=== PATIENT | female | born 1930 | race Caucasian/White ===

== ENCOUNTER 2018-04-08 15:02 | Inpatient (IN) ==
[2018-04-09] MEDS ORDERED: Melatonin 3 MG TABLET PO PRN (16:39)
[2018-04-10 04:49] LABS: Basophils % 0.5 %; Eosinophils # 0.1 K/mcL (0.0-0.6); Eosinophils % 1.9 %; Hematocrit 30.4 % (35.3-44.9); Hemoglobin 10.4 g/dL (11.5-15.4); Immature Granulocytes % 0.5 % (0-4); Lymphocytes # 1.7 K/mcL (0.6-4.6); Lymphocytes % 29.3 %; Mean Corpuscular HGB Conc 34.2 g/dL (31.6-35.5); Mean Corpuscular Hemoglobin 30.9 pg (28.0-33.3); Mean Corpuscular Volume 90.2 fL (83.0-100.0); Mean Platelet Volume 10.8 fL (9.4-12.4); Monocytes # 0.5 K/mcL (0.0-1.3); Monocytes % 8.4 %; Neutrophils # 3.5 K/mcL (1.6-8.9); Platelet Count 178 K/mcL (140-400); Red Blood Count 3.37 M/mcL (3.82-4.97); Segmented Neutrophils % 59.4 %
[2018-04-10 04:55] LABS: INR 1.1; Prothrombin Time 12.2 Seconds (9.4-12.1)
[2018-04-10 04:58] LABS: Activated Partial Thrombo Time 30.3 Seconds (26.0-36.0)
[2018-04-10 05:07] LABS: BUN/Creatinine Ratio 8 (6-26); Blood Urea Nitrogen 6 mg/dL (8-23); Calcium 9.3 mg/dL (8.6-10.3); Carbon Dioxide 30 mEq/L (23-29); Chloride 103 mEq/L (98-107); Glucose 99 mg/dL (70-105); Osmolality,Calculated 282 (280-300); Potassium 3.3 mEq/L (3.5-5.1); Sodium 137 mEq/L (136-145); eGFR For Non-African Americans > 60 (> 60)
--- NOTE | 2018-04-10 13:23 | Internal Med History&Physical ---
Date of Encounter: 04/11/18 Time of Encounter: 13:30 Assessment and Plan (1) Hypomagnesemia Current visit: Yes Status: Acute Pt may have malabsorption from taking maciel along with poor dietary intake over last few months. poor short term memory may be forgetting to eat - observed here in hospital to be eating well from tray Will add daily oral magnesium. advised pt not to use the maciel expand diet may have failure to thrive nutrional consult placed will check vitamin levels B12 TSH (2) Hypokalemia Current visit: Yes Status: Acute Pt has low K Had low K recently also will supplement K today will not add daily K yet but will check daily this week and observe trending to see if needed may have element of renal K wasting if K still remains low - then would need daily K other plans same as for low magnesium (3) Falls Current visit: Yes Status: Acute Pt is weak and deconditioned she needs rehab therapies ordered She may have increased weakness due to failure to thrive symptoms and electrolyte abnormalities orders corrective placed will also check cbc as mild anemia HB = 10.4 Qualifiers: Encounter type: subsequent encounter Qualified Code(s): W19.XXXD - Unspecified fall, subsequent encounter Internal Medicine - H&P: HPI Chief complaint: Deconditioning/Falls Admitted From: Intrahospital Transfer History of present illness: Ms. Hernandez is a 87 year old female who had been living alone, and sustained a fall down stairs at home. She was admit to outside hospital and then transfer here for rehab. Says she Takes several different herbal vitamins at home, and lots of Betonite Maciel. Says she takes maciel by the spoonful. She does not take medications. She has been found recently to have low magnesium and low K. 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 She lives alone in a large house and bedroom on second floor. She has had short term memory difficulties over months. She also over last 6 months has had about 30 lb wt loss. She says 'its ok I had a large belly anyway". Her daughters says she forgets to eat. They say she used to be very active and lately just spends days on the couch. They say she complained of feeling tired out. She has previously enjoyed good health. She denies chest pain or headache or abd pain. She was previously ambulatory but now weak and deconditioned. Past Med Surg Social Fam HX - Past Medical History Medical history: no medical history Psychiatric history: depression - Past Surgical History Surgical History: cholecystectomy Additional surgical history: colon surgery per rectum - Social History Smoking Status: Never smoker Smokeless Tobacco Status: No Alcohol use: none Drug use: none - Family History Daughter Adopted: Start: [place] Age: 67 Living Status: Still Living Hx Family Cardiac Disorders: No Hx Family Respiratory Disorders: No Hx Family Cancer: No Hx Family GI Disorders: No Hx Family Genitourinary Disorders: No Hx Family Endocrine Disorder: No Hx Family Musculoskeletal Disorders: No Hx Family Neuromuscular Disorders: No Hx Family Neurologic Disorders: No Hx Family HEENT Disorders: No Hx Family Autoimmune Disorders: No Hx Family Reproductive Disorders: No Hx Family Psychosocial Disorders: No Hx Family Medical Disorders: No Internal Medicine - H&P: Meds Allergy/AdvReac Type Severity Reaction Status Date / Time No Known Allergies Allergy Verified 04/09/18 16:09 All Systems PM: A 10-system review of systems was performed and is negative for pertinent findings except as documented above in the HPI. - Constitutional Vitals: Temp Pulse Resp BP Pulse Ox 97.7 F 72 16 128/72 92 04/10/18 07:47 04/10/18 07:47 04/10/18 07:47 04/10/18 07:47 04/10/18 07:47 General appearance: Present: cooperative, A&O X 1, underweight - Head Additional comments: small excoriation - Eye Eye exam: Present: EOMI, PERRL - Neck Additional comments: no goiter or mass no bruit - Respiratory Additional comments: clear to ausculation - Cardiovascular Additional comments: regular no M good heart tones - GI/Abdominal GI/Abdominal exam: Present: hyperactive bowel sounds, normal bowel sounds (no mass palp nontender ) - Extremities Exam Additional comments: pulses stong symetric no edema fair LE musculature - Neurological Exam Additional comments: no gross deficits except short term memory Internal Med - H&P Results - Labs CBC & Chem 7: 04/10/18 04:28 04/10/18 04:28 Labs: Short CBC 04/10/18 Range/Units 04:28 WBC 5.9 (4.3-11.1) K/mcL Hgb 10.4 L (11.5-15.4) g/dL Hct 30.4 L (35.3-44.9) % Plt Count 178 (140-400) K/mcL Neutrophils # 3.5 (1.6-8.9) K/mcL BMP 04/10/18 04:28 Sodium 137 Potassium 3.3 L Chloride 103 Carbon Dioxide 30 H BUN 6 L Creatinine 0.76 Glucose 99 Calcium 9.3
[2018-04-10] MEDS: Multivit/Ca/Min/Fe/FA 1 TAB TABLET PO SCH (14:36)
[2018-04-10] MEDS: Magnesium Oxide 400 MG TABLET PO SCH ×2 (14:36→19:39)
[2018-04-11] MEDS: Multivit/Ca/Min/Fe/FA 1 TAB TABLET PO SCH (08:26)
[2018-04-11] MEDS: Magnesium Oxide 400 MG TABLET PO SCH ×2 (08:26→19:56)
[2018-04-11 11:34] LABS: BUN/Creatinine Ratio 9 (6-26); Blood Urea Nitrogen 8 mg/dL (8-23); Calcium 10.3 mg/dL (8.6-10.3); Carbon Dioxide 30 mEq/L (23-29); Chloride 106 mEq/L (98-107); Glucose 108 mg/dL (70-105); Magnesium 1.8 mg/dL (1.6-2.6); Osmolality,Calculated 289 (280-300); Potassium 4.4 mEq/L (3.5-5.1); Sodium 140 mEq/L (136-145); eGFR For Non-African Americans > 60 (> 60)
[2018-04-11 14:05] LABS: % Iron Saturation 10 % (15-50); Iron 27 mcg/dL (50-170); Transferrin 193 mg/dL (203-362)
--- NOTE | 2018-04-11 14:16 | Internal Med Progress Note ---
Addendum entered and electronically signed by Harish Starr MD 04/12/18 12:22: I have personally performed a face to face evaluation on this patient. I have r eviewed and agree with the care plan. History an d Exam by me shows: The patient was evaluated by me yesterday but the note was not completeDiscussed care with other providers and/or nursing. This documentation is being completed today for that reason. Patient is without complaint and remains comfortably confused. Discussed with therapy staff and feel that she has diminished memory and insight and therefore will need home discharge with 24-hour supervision or ECF. Patient has no complaint of chest discomfort, dyspnea, orthopnea, palpitations, nausea or vomiting, constipation or diarrhea, other changes in bowel habits, difficulty with urination, rash or itching, or other new complaints, except as mentioned above. Review of systems is otherwise negative. Examination: (Except as mentioned above): General: In no apparent distress. Alert and oriented 3. Nondiaphoretic. Head: Atraumatic and normocephalic. Respiratory: No use of accessory muscles. Lungs are clear throughout. Normal airflow. Cardiovascular: Regular rate and rhythm without murmur appreciated. Abdomen: Bowel sounds are normal. No hepatosplenomegaly mass or tenderness appreciated. Extremities: No cyanosis clubbing or edema. Skin: Warm and non-diaphoretic with no new lesions noted. . Original Note: Date of Encounter: 04/11/18 Time of Encounter: 14:13 - Assessment and plan (1) Hypomagnesemia Current Visit: Yes Status: Acute Assessment and plan: Magnesium 1.8. Will reorder tomorrow. (2) Hypokalemia Current Visit: Yes Status: Acute Assessment and plan: Potassium is returning to normal 4.4. Continue current medication. (3) Falls Current Visit: Yes Status: Acute Assessment and plan: Continue PT and OT. Will follow progress. Assist with ADLs as necessary. Qualifiers: Encounter type: subsequent encounter Qualified Code(s): W19.XXXD - Unspecified fall, subsequent encounter - Time Spent With Patient less than 15 minutes - Subjective Interval history: Patient participating well with therapy. Forgetful at times. Ambulating with Walker in hallway. Eyes pain or any other complaints at this time. Family into visit. - Constitutional Vitals: Temp Pulse Resp BP Pulse Ox 98.2 F 84 16 133/74 91 04/11/18 07:56 04/11/18 07:56 04/11/18 07:56 04/11/18 07:56 04/11/18 07:56 General appearance: Present: cooperative, A&O X 1, underweight - Head Head exam: Present: atraumatic, normocephalic - Eye Eye exam: Present: PERRL, conjuntiva pink, sclera anicteric Pupils: Present: PERRL - Neck Neck exam general surgery: Present: supple, trachea midline. Absent: lymphadenopathy - Respiratory Respiratory exam: Present: CTAB. Absent: accessory muscle use, rales, rhonchi, wheezes - Cardiovascular Cardiovascular exam: Present: RRR, +S1, +S2. Absent: diastolic murmur, gallop, rubs, systolic murmur - GI/Abdominal GI/Abdominal exam: Present: normal bowel sounds, soft, no peritoneal signs. Absent: distended, tenderness - Extremities Exam Extremities exam: Present: warm, radial pulses palpable and symmetrical. Absent: calf tenderness, cyanotic, pedal edema - Neurological Exam Neurological exam: Present: CN II-XII intact, oriented X3, no focal deficits. Absent: pronater drift, facial droop, speech deficit - Skin Skin exam: Present: dry, intact Internal Medicine: Result - Labs CBC & Chem 7: 04/10/18 04:28 04/11/18 06:10 Labs: BMP 04/11/18 06:10 Sodium 140 Potassium 4.4 Chloride 106 Carbon Dioxide 30 H BUN 8 Creatinine 0.87 Glucose 108 H Calcium 10.3 - ABG Interpretation ABG results: PT/INR, D-dimer PT 12.2 Seconds (9.4-12.1) H 04/10/18 04:28 Consult Discharge Plan - Plan Referrals: Jaime Skinner, [facility] [Primary Care Provider] -
[2018-04-12 06:11] LABS: BUN/Creatinine Ratio 8 (6-26); Blood Urea Nitrogen 7 mg/dL (8-23); Calcium 10.1 mg/dL (8.6-10.3); Carbon Dioxide 29 mEq/L (23-29); Chloride 105 mEq/L (98-107); Glucose 102 mg/dL (70-105); Osmolality,Calculated 284 (280-300); Potassium 4.4 mEq/L (3.5-5.1); Sodium 138 mEq/L (136-145); eGFR For Non-African Americans > 60 (> 60)
[2018-04-12] MEDS: Multivit/Ca/Min/Fe/FA 1 TAB TABLET PO SCH (08:49)
[2018-04-12] MEDS: Magnesium Oxide 400 MG TABLET PO SCH ×2 (08:49→19:41)
--- NOTE | 2018-04-12 11:58 | Internal Med Progress Note ---
Addendum entered and electronically signed by Harish Starr MD 04/12/18 12:25: I have personally performed a face to face evaluation on this patient. I have r eviewed and agree with the care plan. History and Exam by me shows: Patient is still pleasantly confused. She is very interactive. However, has little insight. She states she is feeling better. Her bowels moved yesterday and she has no other complaints. Discussed care with other providers and/or nursing. Patient has no complaint of chest discomfort, dyspnea, orthopnea, palpitations, nausea or vomiting, constipation or diarrhea, other changes in bowel habits, difficulty with urination, rash or itching, or other new complaints, except as mentioned above. Review of systems is otherwise negative. Examination: (Except as mentioned above): General: In no apparent distress. Alert and oriented 3. Nondiaphoretic. Head: Atraumatic and normocephalic. Respiratory: No use of accessory muscles. Lungs are clear throughout. Normal airflow. Cardiovascular: Regular rate and rhythm without murmur appreciated. Abdomen: Bowel sounds are normal. No hepatosplenomegaly mass or tenderness appreciated. Extremities: No cyanosis clubbing or edema. Skin: Warm and non-diaphoretic with no new lesions noted. The family is responding to social service about whether they can provide 24 paco r care or what nursing homes they would like to consider. This work is thus in progress. Original Note: Date of Encounter: 04/12/18 Time of Encounter: 11:56 - Assessment and plan (1) Hypomagnesemia Current Visit: Yes Status: Acute Assessment and plan: Magnesium 1.8. improved (2) Hypokalemia Current Visit: Yes Status: Acute Assessment and plan: Potassium is returning to normal 4.4. Continue current medication. (3) Falls Current Visit: Yes Status: Acute Assessment and plan: Continue PT and OT. Will follow progress. Assist with ADLs as necessary. Qualifiers: Encounter type: subsequent encounter Qualified Code(s): W19.XXXD - Unspecified fall, subsequent encounter - Time Spent With Patient less than 15 minutes - Subjective Interval history: Patient participating well with therapy. Forgetful at times. Ambulating with Walker in hallway. denies pain or any other complaints at this time. Maintaining appetite and hydration. Bowels moving as normal - Constitutional Vitals: Temp Pulse Resp BP Pulse Ox 98.3 F 78 16 146/82 92 04/12/18 07:56 04/12/18 07:56 04/12/18 07:56 04/12/18 07:56 04/12/18 07:56 General appearance: Present: cooperative, A&O X 1, underweight - Head Head exam: Present: atraumatic, normocephalic - Eye Eye exam: Present: PERRL, conjuntiva pink, sclera anicteric Pupils: Present: PERRL - Neck Neck exam general surgery: Present: supple, trachea midline. Absent: lymphadenopathy - Respiratory Respiratory exam: Present: CTAB. Absent: accessory muscle use, rales, rhonchi, wheezes - Cardiovascular Cardiovascular exam: Present: RRR, +S1, +S2. Absent: diastolic murmur, gallop, rubs, systolic murmur - GI/Abdominal GI/Abdominal exam: Present: normal bowel sounds, soft, no peritoneal signs. Absent: distended, tenderness - Extremities Exam Extremities exam: Present: warm, radial pulses palpable and symmetrical. Absent: calf tenderness, cyanotic, pedal edema - Neurological Exam Neurological exam: Present: CN II-XII intact, oriented X3, no focal deficits. Absent: pronater drift, facial droop, speech deficit - Skin Skin exam: Present: dry, intact Internal Medicine: Result - Labs CBC & Chem 7: 04/10/18 04:28 04/12/18 05:45 Labs: BMP 04/12/18 05:45 Sodium 138 Potassium 4.4 Chloride 105 Carbon Dioxide 29 BUN 7 L Creatinine 0.84 Glucose 102 Calcium 10.1 - ABG Interpretation ABG results: PT/INR, D-dimer PT 12.2 Seconds (9.4-12.1) H 04/10/18 04:28 Consult Discharge Plan - Plan Referrals: Jaime Skinner, [employer] [Primary Care Provider] -
[2018-04-13 06:38] LABS: BUN/Creatinine Ratio 8 (6-26); Blood Urea Nitrogen 7 mg/dL (8-23); Calcium 10.1 mg/dL (8.6-10.3); Carbon Dioxide 28 mEq/L (23-29); Chloride 106 mEq/L (98-107); Glucose 102 mg/dL (70-105); Osmolality,Calculated 290 (280-300); Potassium 4.3 mEq/L (3.5-5.1); Sodium 141 mEq/L (136-145); eGFR For Non-African Americans > 60 (> 60)
[2018-04-13] MEDS: Multivit/Ca/Min/Fe/FA 1 TAB TABLET PO SCH (08:17)
[2018-04-13] MEDS: Magnesium Oxide 400 MG TABLET PO SCH ×2 (08:17→20:44)
--- NOTE | 2018-04-13 11:02 | Internal Med Progress Note ---
Addendum entered and electronically signed by Harish Starr MD 04/15/18 13:03: Please ignore the note from this state as this was to go one discharge summary. I am not sure why this computer error happened. Addendum entered and electronically signed by Harish Starr MD 04/15/18 13:01: I have personally performed a face to face evaluation on this patient. I have reviewed and agree with the care plan. History and Exam by me shows: The patient is without complaint. I spoke with her at length and she has no questions about discharge. She is still pleasantly confused. Discussed care with other providers and/or nursing. Patient has no complaint of chest discomfort, dyspnea, orthopnea, palpitations, nausea or vomiting, constipation or diarrhea, other changes in bowel habits, difficulty with urination, rash or itching, or other new complaints, except as mentioned above. Review of systems is otherwise negative. Examination: (Except as mentioned above): General: In no apparent distress. Alert and oriented 3. Nondiaphoretic. Head: Atraumatic and normocephalic. Respiratory: No use of accessory muscles. Lungs are clear throughout. Normal airflow. Cardiovascular: Regular rate and rhythm without murmur appreciated. Abdomen: Bowel sounds are normal. No hepatosplenomegaly mass or tenderness appreciated. Obese and therefore difficult to palpate deeply. Extremities: No cyanosis clubbing or edema. Skin: Warm and non-diaphoretic with no new lesions noted. Her children will obtain [id number] vitamin and magnesium supplements. Follow-up as noted with primary care. Addendum entered and electronically signed by Harish Starr MD 04/13/18 14:01: I discussed patient with nurses and with therapy team. However, numerous attempts to see patient were unsuccessful and she was busy with therapies or other activities of daily living. Original Note: Date of Encounter: 04/13/18 Time of Encounter: 11:00 - Assessment and plan (1) Hypomagnesemia Current Visit: Yes Status: Resolved (2) Hypokalemia Current Visit: Yes Status: Resolved (3) Falls Current Visit: Yes Status: Acute Assessment and plan: Continue PT and OT. Will follow progress. Assist with ADLs as necessary. Qualifiers: Encounter type: subsequent encounter Qualified Code(s): W19.XXXD - Unspecified fall, subsequent encounter (4) Confusion Current Visit: Yes Status: Acute Assessment and plan: likely dementia progression. will rec 24 hr supervision at discharge. - Subjective Interval history: Patient participating well with therapy. Ambulating with Walker in hallway. Forgetful at times. denies pain or any other complaints at this time. Maintaining appetite and hydration. Bowels moving as normal. states she slept well last night. - Constitutional Vitals: Temp Pulse Resp BP Pulse Ox 97.9 F 98 14 130/77 95 04/12/18 19:21 04/12/18 19:21 04/12/18 19:21 04/12/18 19:21 04/12/18 19:21 General appearance: Present: cooperative, A&O X 1, underweight - Head Head exam: Present: atraumatic, normocephalic - Eye Eye exam: Present: PERRL, conjuntiva pink, sclera anicteric Pupils: Present: PERRL - Neck Neck exam general surgery: Present: supple, trachea midline. Absent: lymphadenopathy - Respiratory Respiratory exam: Present: CTAB. Absent: accessory muscle use, rales, rhonchi, wheezes - Cardiovascular Cardiovascular exam: Present: RRR, +S1, +S2. Absent: diastolic murmur, gallop, rubs, systolic murmur - GI/Abdominal GI/Abdominal exam: Present: normal bowel sounds, soft, no peritoneal signs. Absent: distended, tenderness - Extremities Exam Extremities exam: Present: warm, radial pulses palpable and symmetrical. Absent: calf tenderness, cyanotic, pedal edema - Neurological Exam Neurological exam: Present: CN II-XII intact, oriented X3, no focal deficits. Absent: pronater drift, facial droop, speech deficit - Skin Skin exam: Present: dry, intact Internal Medicine: Result - Labs CBC & Chem 7: 04/10/18 04:28 04/13/18 05:50 Labs: BMP 04/13/18 05:50 Sodium 141 Potassium 4.3 Chloride 106 Carbon Dioxide 28 BUN 7 L Creatinine 0.88 Glucose 102 Calcium 10.1 - ABG Interpretation ABG results: PT/INR, D-dimer PT 12.2 Seconds (9.4-12.1) H 04/10/18 04:28 Consult Discharge Plan - Plan Referrals: Jaime Skinner, [facility] [Primary Care Provider] -
[2018-04-14 06:00] LABS: BUN/Creatinine Ratio 11 (6-26); Blood Urea Nitrogen 10 mg/dL (8-23); Calcium 11.3 mg/dL (8.6-10.3); Carbon Dioxide 32 mEq/L (23-29); Chloride 103 mEq/L (98-107); Glucose 108 mg/dL (70-105); Osmolality,Calculated 288 (280-300); Potassium 4.1 mEq/L (3.5-5.1); Sodium 139 mEq/L (136-145); eGFR For Non-African Americans 56 (> 60)
[2018-04-14] MEDS: Multivit/Ca/Min/Fe/FA 1 TAB TABLET PO SCH (10:17)
[2018-04-14] MEDS: Magnesium Oxide 400 MG TABLET PO SCH ×2 (10:17→20:15)
--- NOTE | 2018-04-14 10:41 | Internal Med Progress Note ---
Addendum entered and electronically signed by Harish Starr MD 04/14/18 11:23: I have personally performed a face to face evaluation on this patient. I have r eviewed and agree with the care plan. History and Exam by me shows: The patient is tired from therapy but otherwise, has no complaint. She states that she is moving bowels and bladder well. She denies other problems. Discussed care with other providers and/or nursing. Patient has no complaint of chest discomfort, dyspnea, orthopnea, palpitations, nausea or vomiting, constipation or diarrhea, other changes in bowel habits, difficulty with urination, rash or itching, or other new complaints, except as mentioned above. Review of systems is otherwise negative. Examination: (Except as mentioned above): General: In no apparent distress. Alert and oriented 3. Nondiaphoretic. Head: Atraumatic and normocephalic. Respiratory: No use of accessory muscles. Lungs are clear throughout. Normal airflow. Cardiovascular: Regular rate and rhythm without murmur appreciated. Abdomen: Bowel sounds are normal. No hepatosplenomegaly mass or tenderness appreciated. Obese and therefore difficult to palpate deeply. Extremities: No cyanosis clubbing or edema. Skin: Warm and non-diaphoretic with no new lesions noted. Original Note: Date of Encounter: 04/14/18 Time of Encounter: 10:39 - Assessment and plan (1) Confusion Current Visit: Yes Status: Acute Assessment and plan: No acute issues with no behavior problems reported per nursing. Patient was appropriate during conversation and oriented 3. Patient is cooperative during exam and continues with physical therapy. We will continue with current plan of care (2) Hypokalemia Current Visit: Yes Status: Acute Assessment and plan: No acute issues. Patient's electrolytes have corrected as noted with serial labs. We will continue with supportive care and review labs in 2 days (3) Falls Current Visit: Yes Status: Acute Assessment and plan: Patient continues with gait imbalance and poor endurance. Progressing well with physical therapy and is being prepared for discharge to home tomorrow. Qualifiers: Encounter type: subsequent encounter Qualified Code(s): W19.XXXD - Unspecified fall, subsequent encounter - Time Spent With Patient less than 15 minutes - Subjective Interval history: Patient appears relaxed and currently denies any discomforts or shortness of breath. Patient states that physical therapy is progressing well and states that she is anxious to be discharged home tomorrow. - Constitutional Vitals: Temp Pulse Resp BP Pulse Ox 97.8 F 83 16 119/64 95 04/14/18 07:01 04/14/18 07:01 04/14/18 07:01 04/14/18 07:01 04/14/18 07:01 General appearance: Present: cooperative, A&O X 1, underweight - Head Head exam: Present: atraumatic, normocephalic - Eye Eye exam: Present: PERRL, conjuntiva pink, sclera anicteric Pupils: Present: PERRL - Neck Neck exam general surgery: Present: supple, trachea midline. Absent: lymphadenopathy - Respiratory Respiratory exam: Present: CTAB. Absent: accessory muscle use, rales, rhonchi, wheezes - Cardiovascular Cardiovascular exam: Present: RRR, +S1, +S2. Absent: diastolic murmur, gallop, rubs, systolic murmur - GI/Abdominal GI/Abdominal exam: Present: normal bowel sounds, soft, no peritoneal signs. Absent: distended, tenderness - Extremities Exam Extremities exam: Present: warm, radial pulses palpable and symmetrical. Absent: calf tenderness, cyanotic, pedal edema - Neurological Exam Neurological exam: Present: CN II-XII intact, oriented X3, no focal deficits. Absent: pronater drift, facial droop, speech deficit - Skin Skin exam: Present: dry, intact Internal Medicine: Result - Labs CBC & Chem 7: 04/10/18 04:28 04/14/18 05:05 Labs: BMP 04/14/18 05:05 Sodium 139 Potassium 4.1 Chloride 103 Carbon Dioxide 32 H BUN 10 Creatinine 0.95 Glucose 108 H Calcium 11.3 H - ABG Interpretation ABG results: PT/INR, D-dimer PT 12.2 Seconds (9.4-12.1) H 04/10/18 04:28 Consult Discharge Plan - Plan Referrals: Jaime Skinner, [employer] [Primary Care Provider] -
[2018-04-15 05:15] LABS: Potassium 3.9 mEq/L (3.5-5.1)
[2018-04-15] MEDS: Magnesium Oxide 400 MG TABLET PO SCH (08:43)
[2018-04-15] MEDS: Multivit/Ca/Min/Fe/FA 1 TAB TABLET PO SCH (08:44)
[2018-04-15 08:56] VITALS: BP 133/71
--- NOTE | 2018-04-15 10:19 | Discharge Summary ---
Addendum entered and electronically signed by Harish Starr MD 04/15/18 13:04: I have personally performed a face to face evaluation on this patient. I have r eviewed and agree with the care plan. History and Exam by me shows: The patient is without complaint. I spoke with her at length and she has no questions about discharge. She is still pleasantly confused. Discussed care with other providers and/or nursing. Patient has no complaint of chest discomfort, dyspnea, orthopnea, palpitations, nausea or vomiting, constipation or diarrhea, other changes in bowel habits, difficulty with urination, rash or itching, or other new complaints, except as mentioned above. Review of systems is otherwise negative. Examination: (Except as mentioned above): General: In no apparent distress. Alert and oriented 3. Nondiaphoretic. Head: Atraumatic and normocephalic. Respiratory: No use of accessory muscles. Lungs are clear throughout. Normal airflow. Cardiovascular: Regular rate and rhythm without murmur appreciated. Abdomen: Bowel sounds are normal. No hepatosplenomegaly mass or tenderness appreciated. Obese and therefore difficult to palpate deeply. Extremities: No cyanosis clubbing or edema. Skin: Warm and non-diaphoretic with no new lesions noted. Her children will obtain [id number] vitamin and magnesium supplements. Follow-up as noted with primary care. Original Note: Date of Encounter: 04/15/18 Time of Encounter: 10:16 - Discharge Diagnosis (1) Confusion Priority: Primary Status: Acute Comments: Patient has been appropriate during interview with no behavior issues reported per nursing. Patient continues to progress with physical therapy. Patient will continue physical therapy as an outpatient after discharge. Patient is a follow-up with PCP and continue with home medications. (2) Hypokalemia Priority: Secondary Status: Acute Comments: No acute issues. Patient's electrolytes have corrected remained stable on serial labs. Patient is continue follow-up with PCP for further management (3) Falls Priority: Secondary Status: Acute Comments: No acute issues during stay of facility. Patient continues to have an unsteady gait required slight assistance. No further falls. Patient progressed well with physical therapy and will continue therapy as an outpatient. Qualifiers: Encounter type: subsequent encounter Qualified Code(s): W19.XXXD - Unspecified fall, subsequent encounter Hospital course: Ms. Hernandez is a 87 year old female patient was transferred to this facility from an [facility] after being evaluated for falls at home. Patient had generalized weakness and deconditioning. Patient progressed with physical therapy during her stay at this facility with no further issues reported. Patient was somewhat confused at time of admission but has been appropriate during her stay of facility. No behavior issues have been reported. Patient had several electrolyte values that were out of range at time of admission but have corrected and stayed stable during serial labs. Patient will continue with physical therapy as an outpatient. Patient is to continue home medications and follow-up with PCP after discharge. Discharge discussed with: patient Time spent discussing smoking cessation with patient: 3 to 10 minutes - Time Spent with Patient Total time spent providing and/or coordinating discharge services: Less than 30 minutes - Discharge Medications Prescriptions: Magnesium Oxide [Mag-Ox] 400 mg PO BID #60 tablet Home Medications: Magnesium Oxide [Mag-Ox] 400 mg PO BID #60 tablet 04/15/18 [Rx] Allergies/Adverse Reactions: Allergy/AdvReac Type Severity Reaction Status Date / Time No Known Allergies Allergy Verified 04/09/18 16:09 Date of admission: 04/09/18 14:59 Primary care physician: Jaime Skinner CNP Consults: 04/09/18 16:25 Consult to Nutrition [CONS] Routine Comment: Consulting Provider: NUTRITION Reason for Dietary Consult: Diet Education Other:: weight loss Consult to Physical Medicine/Rehab [CONS] Routine Reason for Consult: eval and tx Call Completed: No 04/09/18 16:31 Consult to Occupational Therapy [CONS] Routine Comment: Evaluate, develop and implement POC Reason for Consult: eval and tx Does patient have active BEDREST order?: No Is patient medically & hemodynamically stable?: Yes Patient assessed for mobility or mobilized this visit?: Yes Consult to Physical Therapy [CONS] Routine Comment: Evaluate, develop and implement POC Reason for Consult: eval nad tx Does patient have active BEDREST order?: No Is patient medically & hemodynamically stable?: Yes Patient assessed for mobility or mobilized this visit?: Yes Consult to Recreational Therapy [CONS] Routine Comment: Evaluate, develop and implement POC Consult to Geological Sample Tester [CONS] Routine Reason for SW Consult: eval and tx Discharging clinician: Harish Starr - Constitutional Vitals: Temp Pulse Resp BP Pulse Ox 98.3 F 64 18 133/71 93 04/15/18 08:00 04/15/18 08:00 04/15/18 08:00 04/15/18 08:00 04/15/18 08:00 General appearance: Present: cooperative, A&O X 3, underweight - Head Head exam: Present: atraumatic, normocephalic - Eye Eye exam: Present: PERRL, conjuntiva pink, sclera anicteric Pupils: Present: PERRL - Neck Neck exam general surgery: Present: supple, trachea midline. Absent: lymphadenopathy - Respiratory Respiratory exam: Present: CTAB. Absent: accessory muscle use, rales, rhonchi, wheezes - Cardiovascular Cardiovascular exam: Present: RRR, +S1, +S2. Absent: diastolic murmur, gallop, rubs, systolic murmur - GI/Abdominal GI/Abdominal exam: Present: normal bowel sounds, soft, no peritoneal signs. Absent: distended, tenderness - Extremities Exam Extremities exam: Present: warm, radial pulses palpable and symmetrical. Absent: calf tenderness, cyanotic, pedal edema - Neurological Exam Neurological exam: Present: CN II-XII intact, oriented X3, no focal deficits. Absent: pronater drift, facial droop, speech deficit - Skin Skin exam: Present: dry, intact - Patient Status Disposition: Home Health Service Condition: Good Functional capacity at discharge: uses cane/walker Overall status at discharge: patient is progressing back to baseline - Discharge Instructions Follow Up With: Jaime Skinner, PULLMAN CLERK [Primary Care Provider] - - Diet and Activity Activity: ambulate only with your walker, as per physical therapy Diet: diabetic diet
== END 2018-04-15 11:30 | disposition home health service (06) | DRG 945 ==
LOC: INPGRE 04-09 14:59

== ENCOUNTER 2018-04-17 11:36 | Observation (INO) ==
--- NOTE | 2018-04-17 12:37 | Emergency Department Note ---
Disposition Clinical Impression: Hypercalcemia Disposition: Admitted As Inpatient Condition: Good Time of Disposition: 14:02 General Adult HPI - General Chief complaint: ED Altered Mental Status Stated complaint: CONFUSED, UTI Time Seen by Provider: 04/17/18 12:07 Source: patient Limitations: no limitations Nursing Notes Reviewed: Yes Vital Signs Reviewed: Yes - History of Present Illness HPI Narrative: weakness and confusion since discharged from a rehab visit a few days ago. has been increasingly confused for several months, getting worse over time. Was admitted to another hospital after a fall and discharged to rehab here. Magnesium was low but remained fairly oriented here and was able to do well at rehab and was discharged. At home this morning was weak in ambulation and slid down a wall this morning. Has been confused. no fever, chest pain, shortness of breath, cough, nausea or vomiting or diarrhea. Denies urinary symptoms. has been a little constipated. 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 Constitutional: Denies: fever, chills Eyes: Denies: eye pain, vision change ENT ED: Denies: throat pain, epistaxis Cardiovascular: Denies: chest pain, palpitations Respiratory: Denies: cough, dyspnea Gastrointestinal: Denies: abdominal pain, nausea, vomiting, diarrhea Genitourinary: Denies: urgency, dysuria Musculoskeletal: Denies: back pain, neck pain Integumentary: Denies: rash Neurological: Reports: weakness. Denies: headache, numbness Psychiatric: Denies: anxiety, depression Endocrine: Denies: fatigue, heat or cold intolerance Hematological/Lymphatic: Denies: easy bleeding, easy bruising Allergic/Immunologic: Denies: facial swelling, urticaria Past Medical History - Past Medical History Medical history: Reports: other Surgical history: Reports: cholecystectomy Psychiatric history: Reports: depression MANAGER EPIC history: Reports: no MANAGER EPIC history - Social History Smoking Status: Never smoker Smokeless Tobacco Status: No Alcohol use: Reports: none Drug use: Reports: none Physical Exam - General Limitations: no limitations General appearance: alert, in no apparent distress, appears intoxicated, other (ready smile, denies pain or discomfort) - Head Head exam: atraumatic, normocephalic - Eye Eye exam: Present: normal appearance, PERRL, EOMI - ENT ENT exam: normal exam, normal oropharynx, mucous membranes moist - Neck Neck exam: Present: normal inspection, full ROM. Absent: lymphadenopathy - Chest Chest inspection: Present: normal inspection, symmetric chest wall rise - Respiratory Respiratory exam: Present: normal lung sounds bilaterally. Absent: respiratory distress, accessory muscle use - Cardiovascular Cardiovascular exam: Present: regular rate, normal rhythm, normal heart sounds - Abdominal Exam Abdominal exam: Present: soft, Non-Tender, normal bowel sounds - Rectal Exam Mobile Service Rv Technician present during exam: Yes Rectal exam: Present: normal inspection, normal rectal tone, other (empty vaug ht) - Female Mobile Service Rv Technician present during exam: Yes External Exam: Present: normal external exam - Back Exam Back exam: Present: normal inspection, full ROM. Absent: CVA tenderness (R), CVA tenderness (L) - Neurological Exam Neurological exam: Present: alert, CN II-XII intact, other (knew she was in a hospital but not which one. knew the day of week and month but not date. knew the year and President). Absent: motor sensory deficit - Psychiatric Psychiatric exam: Present: normal affect, normal mood - Skin Skin exam: Present: warm, dry, normal color Course - Reevaluation(s) Reevaluation #1: her calcium is elevated and has been recently increasing. 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 I will give IV saline and the hospitaliist, Dr Jensen, agrees to observation admission. will initially try saline for her calcium and follow it closely Vital Signs Temperature 98.9 F 04/17/18 12:05 Pulse Rate 97 04/17/18 12:05 Respiratory Rate 18 04/17/18 12:05 Blood Pressure 139/81 04/17/18 12:05 O2 Sat by Pulse Oximetry 93 04/17/18 12:05 Temperature 98.9 F 04/17/18 12:05 Pulse Rate 97 04/17/18 12:05 Respiratory Rate 16 04/17/18 14:51 Blood Pressure 135/72 04/17/18 14:51 O2 Sat by Pulse Oximetry 93 04/17/18 12:05 Oxygen Delivery Oxygen Delivery Room Air Medical Decision Making - Medical Records Medical records reviewed: Yes I reviewed the patient's medical records. - Lab Data Lab results reviewed: Yes I reviewed the patient's lab results. Result diagrams: 04/17/18 12:20 04/17/18 12:20 Lab Results 04/17/18 04/17/18 04/17/18 Range/Units 12:20 12:20 12:20 WBC 7.5 (4.3-11.1) K/mcL RBC 4.00 (3.82-4.97) M/mcL Hgb 12.4 (11.5-15.4) g/dL Hct 36.7 (35.3-44.9) % MCV 91.8 (83.0-100.0) fL MCH 31.0 (28.0-33.3) pg MCHC 33.8 (31.6-35.5) g/dL RDW 13.1 (11.5-14.5) % Plt Count 246 (140-400) K/mcL MPV 10.9 (9.4-12.4) fL Immature Gran % 0.7 (0-4) % Seg Neutrophils % 73.6 % Lymphocytes % 18.9 % Monocytes % 6.0 % Eosinophils % 0.3 % Basophils % 0.5 % Neutrophils # 5.5 (1.6-8.9) K/mcL Lymphocytes # 1.4 (0.6-4.6) K/mcL Monocytes # 0.5 (0.0-1.3) K/mcL Eosinophils # 0.0 (0.0-0.6) K/mcL Basophils # 0.0 (0.0-0.2) K/mcL PT 11.9 (9.4-12.1) Seconds INR 1.1 APTT 30.9 (26.0-36.0) Seconds Sodium 143 (136-145) mEq/L Potassium 3.6 (3.5-5.1) mEq/L Chloride 100 (98-107) mEq/L Carbon Dioxide 37 H (23-29) mEq/L BUN 21 (8-23) mg/dL Creatinine 1.42 H (0.60-1.20) mg/dL Est GFR ( Amer) 42 L (> 60) Est GFR (Non-Af Amer) 35 L (> 60) BUN/Creatinine Ratio 15 (6-26) Glucose 127 H (70-105) mg/dL Calculated Osmolality 301 H (280-300) Calcium 13.3 H* (8.6-10.3) mg/dL Magnesium 2.4 (1.6-2.6) mg/dL Total Bilirubin 1.0 (0.3-1.0) mg/dL Direct Bilirubin 0.2 (0.0-0.2) mg/dL Indirect Bilirubin 0.8 (0.0-1.2) mg/dL AST 20 (13-39) Units/L ALT 11 (7-52) Units/L Alkaline Phosphatase 70 (34-104) Units/L Ammonia (16-53) mcmol/L Troponin I 0.03 (< 0.04) ng/mL B-Natriuretic Peptide (Less than 100) pg/mL Serum Total Protein 7.0 (6.4-8.9) g/dL Albumin 3.7 (3.5-5.7) g/dL Globulin 3.3 (2.4-3.5) g/dL Albumin/Globulin Ratio 1.1 (1.1-2.2) Urine Color (Yellow) Urine Clarity (Clear) Urine pH (5.0-8.0) pH Units Ur Specific Kiel (1.010-1.025) Urine Protein (Neg-Trace) mg/dL Urine Glucose (UA) (Normal) mg/dL Urine Ketones (Negative) mg/dL Urine Blood (Negative) Urine Nitrite (Negative) Urine Bilirubin (Negative) Urine Urobilinogen (Normal) mg/dL Ur Leukocyte Esterase (Negative) Ur Culture Indicated? (NO) Urine Opiates Screen (Uvvbeu=168) ng/mL Ur Barbiturates Screen (Aadpzw=570) ng/mL Ur Phencyclidine Scrn (Cutoff=25) ng/mL Ur Amphetamines Screen (Zlafly=3299) ng/mL U Benzodiazepines Scrn (Pbzeur=547) ng/mL Urine Cocaine Screen (Cutoff= 300) ng/mL U Marijuana (THC) Screen (Cutoff = 50) ng/mL Ur Drug Screen Interp Ethyl Alcohol < 10 (Less than 10) mg/dL 04/17/18 04/17/18 04/17/18 Range/Units 12:20 12:20 12:20 WBC (4.3-11.1) K/mcL RBC (3.82-4.97) M/mcL Hgb (11.5-15.4) g/dL Hct (35.3-44.9) % MCV (83.0-100.0) fL MCH (28.0-33.3) pg MCHC (31.6-35.5) g/dL RDW (11.5-14.5) % Plt Count (140-400) K/mcL MPV (9.4-12.4) fL Immature Gran % (0-4) % Seg Neutrophils % % Lymphocytes % % Monocytes % % Eosinophils % % Basophils % % Neutrophils # (1.6-8.9) K/mcL Lymphocytes # (0.6-4.6) K/mcL Monocytes # (0.0-1.3) K/mcL Eosinophils # (0.0-0.6) K/mcL Basophils # (0.0-0.2) K/mcL PT (9.4-12.1) Seconds INR APTT (26.0-36.0) Seconds Sodium (136-145) mEq/L Potassium (3.5-5.1) mEq/L Chloride (98-107) mEq/L Carbon Dioxide (23-29) mEq/L BUN (8-23) mg/dL Creatinine (0.60-1.20) mg/dL Est GFR ( Amer) (> 60) Est GFR (Non-Af Amer) (> 60) BUN/Creatinine Ratio (6-26) Glucose (70-105) mg/dL Calculated Osmolality (280-300) Calcium (8.6-10.3) mg/dL Magnesium (1.6-2.6) mg/dL Total Bilirubin (0.3-1.0) mg/dL Direct Bilirubin (0.0-0.2) mg/dL Indirect Bilirubin (0.0-1.2) mg/dL AST (13-39) Units/L ALT (7-52) Units/L Alkaline Phosphatase (34-104) Units/L Ammonia 27 (16-53) mcmol/L Troponin I (< 0.04) ng/mL B-Natriuretic Peptide 142 H (Less than 100) pg/mL Serum Total Protein (6.4-8.9) g/dL Albumin (3.5-5.7) g/dL Globulin (2.4-3.5) g/dL Albumin/Globulin Ratio (1.1-2.2) Urine Color (Yellow) Urine Clarity (Clear) Urine pH (5.0-8.0) pH Units Ur Specific Kiel (1.010-1.025) Urine Protein (Neg-Trace) mg/dL Urine Glucose (UA) (Normal) mg/dL Urine Ketones (Negative) mg/dL Urine Blood (Negative) Urine Nitrite (Negative) Urine Bilirubin (Negative) Urine Urobilinogen (Normal) mg/dL Ur Leukocyte Esterase (Negative) Ur Culture Indicated? (NO) Urine Opiates Screen Negative (Lappxy=570) ng/mL Ur Barbiturates Screen Negative (Sypxop=851) ng/mL Ur Phencyclidine Scrn Negative (Cutoff=25) ng/mL Ur Amphetamines Screen Negative (Rodaku=8913) ng/mL U Benzodiazepines Scrn Negative (Xhxgot=784) ng/mL Urine Cocaine Screen Negative (Cutoff= 300) ng/mL U Marijuana (THC) Screen Negative (Cutoff = 50) ng/mL Ur Drug Screen Interp See Below Ethyl Alcohol (Less than 10) mg/dL 04/17/18 Range/Units 12:39 WBC (4.3-11.1) K/mcL RBC (3.82-4.97) M/mcL Hgb (11.5-15.4) g/dL Hct (35.3-44.9) % MCV (83.0-100.0) fL MCH (28.0-33.3) pg MCHC (31.6-35.5) g/dL RDW (11.5-14.5) % Plt Count (140-400) K/mcL MPV (9.4-12.4) fL Immature Gran % (0-4) % Seg Neutrophils % % Lymphocytes % % Monocytes % % Eosinophils % % Basophils % % Neutrophils # (1.6-8.9) K/mcL Lymphocytes # (0.6-4.6) K/mcL Monocytes # (0.0-1.3) K/mcL Eosinophils # (0.0-0.6) K/mcL Basophils # (0.0-0.2) K/mcL PT (9.4-12.1) Seconds INR APTT (26.0-36.0) Seconds Sodium (136-145) mEq/L Potassium (3.5-5.1) mEq/L Chloride (98-107) mEq/L Carbon Dioxide (23-29) mEq/L BUN (8-23) mg/dL Creatinine (0.60-1.20) mg/dL Est GFR ( Amer) (> 60) Est GFR (Non-Af Amer) (> 60) BUN/Creatinine Ratio (6-26) Glucose (70-105) mg/dL Calculated Osmolality (280-300) Calcium (8.6-10.3) mg/dL Magnesium (1.6-2.6) mg/dL Total Bilirubin (0.3-1.0) mg/dL Direct Bilirubin (0.0-0.2) mg/dL Indirect Bilirubin (0.0-1.2) mg/dL AST (13-39) Units/L ALT (7-52) Units/L Alkaline Phosphatase (34-104) Units/L Ammonia (16-53) mcmol/L Troponin I (< 0.04) ng/mL B-Natriuretic Peptide (Less than 100) pg/mL Serum Total Protein (6.4-8.9) g/dL Albumin (3.5-5.7) g/dL Globulin (2.4-3.5) g/dL Albumin/Globulin Ratio (1.1-2.2) Urine Color Yellow (Yellow) Urine Clarity Clear (Clear) Urine pH 7.0 (5.0-8.0) pH Units Ur Specific Kiel 1.020 (1.010-1.025) Urine Protein Negative (Neg-Trace) mg/dL Urine Glucose (UA) Normal (Normal) mg/dL Urine Ketones Negative (Negative) mg/dL Urine Blood Negative (Negative) Urine Nitrite Negative (Negative) Urine Bilirubin Negative (Negative) Urine Urobilinogen Normal (Normal) mg/dL Ur Leukocyte Esterase Negative (Negative) Ur Culture Indicated? NO (NO) Urine Opiates Screen (Xnxsbp=711) ng/mL Ur Barbiturates Screen (Nojlyh=005) ng/mL Ur Phencyclidine Scrn (Cutoff=25) ng/mL Ur Amphetamines Screen (Ifadlm=0639) ng/mL U Benzodiazepines Scrn (Kzrnsh=541) ng/mL Urine Cocaine Screen (Cutoff= 300) ng/mL U Marijuana (THC) Screen (Cutoff = 50) ng/mL Ur Drug Screen Interp Ethyl Alcohol (Less than 10) mg/dL - Radiology Data Radiology results reviewed: Yes I reviewed the patient's radiology results. - EKG Data EKG #1 EKG attestation: Yes I reviewed and interpreted this EKG. EKG shows normal: sinus rhythm (87), axis (LAD) [place]/QRS: left axis deviation, RBBB, LAHB/LAFB Interpretation: no acute changes
[2018-04-17 12:44] LABS: Basophils % 0.5 %; Eosinophils % 0.3 %; Hematocrit 36.7 % (35.3-44.9); Hemoglobin 12.4 g/dL (11.5-15.4); Immature Granulocytes % 0.7 % (0-4); Lymphocytes # 1.4 K/mcL (0.6-4.6); Lymphocytes % 18.9 %; Mean Corpuscular HGB Conc 33.8 g/dL (31.6-35.5); Mean Corpuscular Volume 91.8 fL (83.0-100.0); Mean Platelet Volume 10.9 fL (9.4-12.4); Monocytes # 0.5 K/mcL (0.0-1.3); Neutrophils # 5.5 K/mcL (1.6-8.9); Platelet Count 246 K/mcL (140-400); Red Cell Distribution Width 13.1 % (11.5-14.5); Segmented Neutrophils % 73.6 %
[2018-04-17 12:50] LABS: Bilirubin,Urine Negative (Negative); Clarity,Urine Clear (Clear); Color,Urine Yellow (Yellow); Glucose,Urine (UA) Normal (Normal); Ketones,Urine Negative (Negative); Leukocyte Esterase,Urine Negative (Negative); Nitrite,Urine Negative (Negative); Protein,Urine Negative (Neg-Trace); Urobilinogen,Urine Normal (Normal)
[2018-04-17 12:50] LABS: INR 1.1; Prothrombin Time 11.9 Seconds (9.4-12.1)
[2018-04-17 12:51] LABS: Blood,Urine Negative (Negative)
[2018-04-17 12:52] LABS: Activated Partial Thrombo Time 30.9 Seconds (26.0-36.0)
[2018-04-17 13:00] LABS: Troponin I 0.03 ng/mL (< 0.04)
[2018-04-17 13:03] LABS: Amphetamine Screen,Urine Negative ng/mL (Cutoff=1000); Barbiturate Screen,Urine Negative ng/mL (Cutoff=200); Benzodiazepines Screen,Urine Negative ng/mL (Cutoff=200); Cannabinoid Screen,Urine Negative ng/mL (Cutoff = 50); Cocaine Screen,Urine Negative ng/mL (Cutoff= 300); Opiate Screen,Urine Negative ng/mL (Cutoff=300); Phencyclidine Screen,Urine Negative ng/mL (Cutoff=25)
[2018-04-17 13:20] LABS: Alanine Aminotransferase 11 Units/L (7-52); Albumin 3.7 g/dL (3.5-5.7); Albumin/Globulin Ratio 1.1 (1.1-2.2); Alkaline Phosphatase 70 Units/L (34-104); Aspartate Amino Transferase 20 Units/L (13-39); BUN/Creatinine Ratio 15 (6-26); Bilirubin,Direct 0.2 mg/dL (0.0-0.2); Bilirubin,Indirect 0.8 mg/dL (0.0-1.2); Blood Urea Nitrogen 21 mg/dL (8-23); Calcium 13.3 mg/dL (8.6-10.3); Carbon Dioxide 37 mEq/L (23-29); Chloride 100 mEq/L (98-107); Ethanol < 10 mg/dL (Less than 10); Globulin 3.3 g/dL (2.4-3.5); Glucose 127 mg/dL (70-105); Magnesium 2.4 mg/dL (1.6-2.6); Osmolality,Calculated 301 (280-300); Potassium 3.6 mEq/L (3.5-5.1); Sodium 143 mEq/L (136-145); eGFR For Non-African Americans 35 (> 60)
[2018-04-17] MEDS ORDERED: 0.9 % Sodium Chloride 500 ML IVC ONE (13:48)
[2018-04-17] MEDS ORDERED: *HR* Enoxaparin 60 MG/0.6 ML SYRINGE SQ SCH (14:30)
[2018-04-17] MEDS: 0.9 % Sodium Chloride 1,000 ML IVC SCH ×2 (16:34→23:47)
[2018-04-17] MEDS: Furosemide 20 MG/2 ML VIAL IVP SCH (16:34)
[2018-04-17] MEDS: Megestrol Acetate 400 MG/10 ML UDC PO SCH (16:38)
[2018-04-18 06:17] LABS: Calcium 11.7 mg/dL (8.6-10.3); Potassium 3.1 mEq/L (3.5-5.1)
[2018-04-18] MEDS: 0.9 % Sodium Chloride 1,000 ML IVC SCH ×2 (06:20→17:15)
[2018-04-18] MEDS: Megestrol Acetate 400 MG/10 ML UDC PO SCH (08:24)
[2018-04-18] MEDS: Furosemide 20 MG/2 ML VIAL IVP SCH (08:24)
[2018-04-18] MEDS ORDERED: Multivit/Ca/Min/Fe/FA 1 TAB TABLET PO SCH (09:52)
[2018-04-18] MEDS ORDERED: Furosemide 20 MG/2 ML VIAL IVP ONE (09:52)
[2018-04-18] MEDS ORDERED: Naloxone 0.4 MG/ML INJ IVP PRN (09:52)
[2018-04-18] MEDS ORDERED: 0.9 % Sodium Chloride 1,000 ML IVC SCH (09:52)
--- NOTE | 2018-04-18 11:38 | Internal Med History&Physical ---
Addendum entered and electronically signed by Harish Starr MD 04/19/18 15:15: I have personally performed a face to face evaluation on this patient. I have r eviewed and agree with the care plan. History and Exam by me shows: The patient was evaluated by me yesterday but the note was not complete. This documentation is being completed today for that reason. Patient is still pleasantly confused. She seems slightly worse than at her discharge. Upon discussion with son and daughter, patient did okay until Wednesday evening but overnight, was markedly more confused. Interestingly, she seemed to have no other problems that were related to urinary symptoms or otherwise. She denies and daughter does not know of any urinary symptoms. Remainder of H&P is reviewed and patient's memory is limited but we have seen her, only a few days ago. Patient has no complaint of chest discomfort, dyspnea, orthopnea, palpitations, nausea or vomiting, constipation or diarrhea, other changes in bowel habits, difficulty with urination, rash or itching, or other new complaints, except as mentioned above. Review of systems is otherwise negative. I discussed management of her care with nursing staff. Examination: (Except as mentioned above): General: In no apparent distress, alert and oriented 1, about at baseline, for her. Head: Atraumatic and normocephalic. Eyes: Extraocular muscles are intact, pupils equal round and reactive to light a nd accommodation. Sclerae anicteric. Ears: External ears are normal to inspection and hearing is grossly normal. Nose: Patent without lesion noted. Mouth: No intraoral lesions seen. She is edentulous with full dentures. Neck: Supple with trachea midline. There is no thyromegaly or adenopathy and carotids are 2+ without bruit heard. Respiratory: No use of accessory muscles. Lungs are clear throughout. Normal airflow. Cardiovascular: Regular rate and rhythm without murmur appreciated. Abdomen: Bowel sounds are normal. No hepatosplenomegaly masses or tenderness. Obese and therefore difficult to palpate deeply. Extremities: No cyanosis clubbing or edema. Neurological: Cranial nerves II through XII are intact. No focal deficits and no abnormal movements or postures. Skin: Warm and non-diaphoretic with no lesions noted. Breasts, pelvic and rectal: Not examined. I have spoken with pharmacy, look through her medications, talked with her daughter who is a registered nurse, and have no explanation for her hypercalcemia. PTH is low and calcium is high although it has improved overni ght. We will continue to monitor and consider discharge when she is improved from a calcium and a dementia/delirium standpoint. Because of her fluids, she is now hypokalemic so will supplement and recheck. Original Note: Date of Encounter: 04/18/18 Time of Encounter: 11:33 Assessment and Plan (1) Hypercalcemia Current visit: Yes Status: Acute calcium 13.3 in ED yesterday, now 11.7. PTH 6.8. will discontinue Megace. will continue IV fluids and monitor labs. (2) Confusion Current visit: Yes Status: Acute monitor, assist with ADL's,, increased risk for falls. (3) Hypokalemia Current visit: Yes Status: Acute K 3.1, will start supplement. repeat labs in am. Internal Medicine - H&P: HPI Admitted From: Emergency Dept Plans for Post Hospital Care: Home History of present illness: Ms. Hernandez is a 87 year old female admitted from emergency room yesterday afternoon. Patient brought in by family after becoming increasingly confused and weak. Calcium was found to be elevated. daughter denies any supplement use. Patient was just recently discharged from rehab stay on 12\7. calcium was sightly elevated at that time. Patient completed therapy goals and return to home. Patient was slightly confused during stay but nothing irrational. pt is now laying in bed, disoriented and cooperative. denies any complaints but is a poor historian. Past Med Surg Social Fam HX - Past Medical History Medical history: other Additional medical history: constipation, low mag Psychiatric history: depression - Past Surgical History Surgical History: cholecystectomy Additional surgical history: colon surgery per rectum - Social History Smoking Status: Never smoker Smokeless Tobacco Status: No Alcohol use: none Drug use: none - Family History Daughter Adopted: No Living Status: Still Living Hx Family Cardiac Disorders: No Hx Family Respiratory Disorders: No Hx Family Cancer: No Hx Family GI Disorders: No Hx Family Endocrine Disorder: No Hx Family Neuromuscular Disorders: No Hx Family Neurologic Disorders: No Hx Family HEENT Disorders: No Hx Family Autoimmune Disorders: No Internal Medicine - H&P: Meds Multivit with Iron,Minerals [Spectravite Senior] 1 each PO DAILY 04/17/18 [History] Allergy/AdvReac Type Severity Reaction Status Date / Time No Known Allergies Allergy Verified 04/17/18 11:42 All Systems PM: A 10-system review of systems was performed and is negative for pertinent findings except as documented above in the HPI. - Constitutional Constitutional: no chills, no fever(s), no night sweats - EENT Eyes: no change in vision, no discharge, no pain, no photophobia Ears: no ear discharge, no ear pain, no tinnitus Nose, mouth and throat: no dysphagia, no nasal discharge, no neck pain, no sore throat - Cardiovascular Cardiovascular ROS IM: no chest pain, no diaphoresis, no dyspnea, no lightheadedness, no palpitations, no syncope - Respiratory Respiratory: no cough, no dyspnea, no wheezing, no excessive phlegm production - Gastrointestinal Gastrointestinal: no abdominal pain, no diarrhea, no hematemesis, no hematoch ezia, no melena, no nausea, no vomiting - Genitourinary Genitourinary: no change in urinary stream, no dysuria, no flank pain, no hematuria - Musculoskeletal Musculoskeletal ROS IM: no numbness, no tingling - Integumentary Integumentary IM: no rash, no unusual bruising - Neurological Neurological ROS: no confusion, no convulsions, no focal weakness, no numbness, no tingling, no tremor(s) - Hematologic/Lymphatic Hematologic/Lymphatic: no easy bruising - Constitutional Vitals: Temp Pulse Resp BP Pulse Ox 98.0 F 72 16 153/81 95 04/18/18 07:54 04/18/18 07:54 04/18/18 07:54 04/18/18 07:54 04/18/18 07:54 General appearance: Present: cooperative, A&O X 1, pleasant, no acute distress Exam: confused - Head Head exam: Present: atraumatic, normocephalic - Eye Eye exam: Present: PERRL, conjuntiva pink, sclera anicteric Pupils: Present: PERRL - Neck Neck exam general surgery: Present: supple, trachea midline. Absent: lymphadenopathy - Respiratory Respiratory exam: Present: CTAB. Absent: accessory muscle use, rales, rhonchi, wheezes - Cardiovascular Cardiovascular exam: Present: RRR, +S1, +S2. Absent: diastolic murmur, gallop, rubs, systolic murmur - GI/Abdominal GI/Abdominal exam: Present: normal bowel sounds, soft, no peritoneal signs. Absent: distended, tenderness - Extremities Exam Extremities exam: Present: warm, radial pulses palpable and symmetrical. Absent: calf tenderness, cyanotic, pedal edema - Neurological Exam Neurological exam: Present: CN II-XII intact, oriented X3, no focal deficits. Absent: pronater drift, facial droop, speech deficit - Skin Skin exam: Present: dry, intact Internal Med - H&P Results - Labs CBC & Chem 7: 04/17/18 12:20 04/18/18 05:35 Labs: Short CBC 04/17/18 Range/Units 12:20 WBC 7.5 (4.3-11.1) K/mcL Hgb 12.4 (11.5-15.4) g/dL Hct 36.7 (35.3-44.9) % Plt Count 246 (140-400) K/mcL Neutrophils # 5.5 (1.6-8.9) K/mcL BMP 04/17/18 04/18/18 12:20 05:35 Sodium 143 145 Potassium 3.6 3.1 L Chloride 100 106 Carbon Dioxide 37 H 33 H BUN 21 19 Creatinine 1.42 H 1.34 H Glucose 127 H 107 H Calcium 13.3 H* 11.7 H Cardiac Enzymes 04/17/18 Range/Units 12:20 Troponin I 0.03 (< 0.04) ng/mL Liver Function 04/17/18 Range/Units 12:20 Total Bilirubin 1.0 (0.3-1.0) mg/dL Direct Bilirubin 0.2 (0.0-0.2) mg/dL AST 20 (13-39) Units/L ALT 11 (7-52) Units/L Alkaline Phosphatase 70 (34-104) Units/L Albumin 3.7 (3.5-5.7) g/dL Urine 04/17/18 Range/Units 12:39 Urine Color Yellow (Yellow) Urine Clarity Clear (Clear) Urine pH 7.0 (5.0-8.0) pH Units Ur Specific Duson 1.020 (1.010-1.025) Urine Protein Negative (Neg-Trace) mg/dL Urine Glucose (UA) Normal (Normal) mg/dL - Impressions ITS Impressions Chest X-Ray 04/17/18 12:20 IMPRESSION: 1. No acute cardiopulmonary process. 2. Interstitial prominence potentially due to chronic interstitial change and/or pulmonary vascular congestion. D/ / Francisco Tamez MD / Francisco Tamez MD Interpreting Provider: Francisco Tamez MD Head CT 04/17/18 12:21 IMPRESSION: 1. No acute intracranial abnormality. 2. Mild age-appropriate diffuse atrophy with severe chronic small vessel ischemic changes. D/ / Francisco Tamez MD / Francisco Tamez MD Interpreting Provider: Francisco Tamez MD
[2018-04-18 12:52] LABS: Albumin 3.3 g/dL (3.5-5.7); Albumin/Globulin Ratio 1.1 (1.1-2.2); Bilirubin,Total 0.9 mg/dL (0.3-1.0); Calcium 11.5 mg/dL (8.6-10.3); Potassium 2.8 mEq/L (3.5-5.1); Total Protein 6.3 g/dL (6.4-8.9)
[2018-04-18] MEDS: *HR* Enoxaparin 60 MG/0.6 ML SYRINGE SQ SCH (15:57)
[2018-04-18] MEDS ORDERED: Furosemide 20 MG/2 ML VIAL IVP SCH (17:00)
[2018-04-19 06:12] LABS: Calcium 11.4 mg/dL (8.6-10.3)
[2018-04-19 06:29] LABS: VBG Ionized Calcium 1.56 mmol/L (1.15-1.35)
[2018-04-19] MEDS ORDERED: Megestrol Acetate 400 MG/10 ML UDC PO SCH (09:00)
--- NOTE | 2018-04-19 10:04 | Internal Med Progress Note ---
Addendum entered and electronically signed by Harish Starr MD 04/19/18 15:19: I have personally performed a face to face evaluation on this patient. I have r eviewed and agree with the care plan. History and Exam by me shows: The patient is more confused, sedated today. This is per nursing and per her son. She is confused as to timing and what her situation is. She states that she has no discomfort and/or pain. She is otherwise at rest comfortable. Discussed care with other providers and/or nursing. Patient has no complaint of chest discomfort, dyspnea, orthopnea, palpitations, nausea or vomiting, constipation or diarrhea, other changes in bowel habits, difficulty with urination, rash or itching, or other new complaints, except as mentioned above. Review of systems is otherwise negative. Examination: (Except as mentioned above): General: In no apparent distress. Alert and oriented 1. Nondiaphoretic. Head: Atraumatic and normocephalic. Respiratory: No use of accessory muscles. Lungs are clear throughout. Normal airflow. Cardiovascular: Regular rate and rhythm without murmur appreciated. Abdomen: Bowel sounds are normal. No hepatosplenomegaly mass or tenderness appreciated. Obese and therefore difficult to palpate deeply. Extremities: No cyanosis clubbing or edema. Skin: Warm and non-diaphoretic with no new lesions noted. Again, I have no reason for hypercalcemia. If she had experienced a paraneoplastic hypercalcemia, would have expected her not to have sudden increase. Her parathyroid hormone is standard. We are looking into the possibility of a repeat with specific parathyroid assay that would include a paraneoplastic level. We will continue to follow for another day in hopes that her delirium improves. I suspect, after talking to her son, that this is multiple change in environment. She is not able to go up to her upstairs usual bedroom, at home. For this reason, her delirium may have been worsened by another change of environment. I explained delirium and dementia risk to son, at length. Original Note: Date of Encounter: 04/19/18 Time of Encounter: 10:02 - Assessment and plan (1) Hypercalcemia Current Visit: Yes Status: Acute Assessment and plan: Calcium 11.4 today. Improving slightly. Urine calcium in urine creatinine is currently being obtained. (2) Confusion Current Visit: Yes Status: Acute Assessment and plan: Assist with ADLs as necessary. Continue to monitor. (3) Hypokalemia Current Visit: Yes Status: Acute Assessment and plan: Continue supplements. Will follow labs. Currently 3.0. - Time Spent With Patient less than 15 minutes - Subjective Interval history: Patient resting in bed, trying to eat breakfast. Denies any discomfort but is extremely confused at this time. Patient alert and oriented to self but states she is unsure where she is. She is pleasant and cooperative. - Constitutional Vitals: Temp Pulse Resp BP Pulse Ox 98.6 F 92 17 144/76 92 04/19/18 06:30 04/19/18 06:30 04/19/18 06:30 04/19/18 06:30 04/19/18 06:30 General appearance: Present: cooperative, A&O X 1, pleasant, no acute distress - Head Head exam: Present: atraumatic, normocephalic - Eye Eye exam: Present: PERRL, conjuntiva pink, sclera anicteric Pupils: Present: PERRL - Neck Neck exam general surgery: Present: supple, trachea midline. Absent: lymphadenopathy - Respiratory Respiratory exam: Present: CTAB. Absent: accessory muscle use, rales, rhonchi, wheezes - Cardiovascular Cardiovascular exam: Present: RRR, +S1, +S2. Absent: diastolic murmur, gallop, rubs, systolic murmur - GI/Abdominal GI/Abdominal exam: Present: normal bowel sounds, soft, no peritoneal signs. Absent: distended, tenderness - Extremities Exam Extremities exam: Present: warm, radial pulses palpable and symmetrical. Absent: calf tenderness, cyanotic, pedal edema - Neurological Exam Neurological exam: Present: CN II-XII intact, no focal deficits. Absent: pronater drift, facial droop, speech deficit - Skin Skin exam: Present: dry, intact Internal Medicine: Result - Labs CBC & Chem 7: 04/17/18 12:20 04/19/18 05:35 Labs: BMP 04/18/18 04/19/18 12:10 05:35 Sodium 145 142 Potassium 2.8 L 3.0 L Chloride 105 107 Carbon Dioxide 34 H 30 H BUN 17 21 Creatinine 1.28 H 1.19 Glucose 102 92 Calcium 11.5 H 11.4 H Liver Function 04/18/18 04/18/18 Range/Units 12:10 12:10 Total Bilirubin 0.9 (0.3-1.0) mg/dL AST 23 (13-39) Units/L ALT 15 (7-52) Units/L Alkaline Phosphatase 58 58 (34-104) Units/L Albumin 3.3 L (3.5-5.7) g/dL - ABG Interpretation ABG results: PT/INR, D-dimer PT 11.9 Seconds (9.4-12.1) 04/17/18 12:20 Consult Discharge Plan - Plan Referrals: NONE,PCP [Primary Care Provider] -
[2018-04-19] MEDS: 0.9 % Sodium Chloride 1,000 ML IVC SCH (14:25)
[2018-04-19 15:41] LABS: Total Volume 24 Hour,Urine 1.19 Liters (0.60-1.60)
--- NOTE | 2018-04-19 17:08 | Electrocardiograph Report ---
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
[2018-04-19] MEDS: *HR* Enoxaparin 60 MG/0.6 ML SYRINGE SQ SCH (17:28)
[2018-04-20] MEDS: 0.9 % Sodium Chloride 1,000 ML IVC SCH ×2 (03:35→03:50)
[2018-04-20 08:07] LABS: VBG Ionized Calcium 1.57 mmol/L (1.15-1.35)
[2018-04-20 09:24] LABS: Total Volume 24 Hour,Urine 1.19 Liters (0.60-1.60)
--- NOTE | 2018-04-20 10:57 | Internal Med Progress Note ---
Addendum entered and electronically signed by Harish Starr MD 04/20/18 11:47: I have personally performed a face to face evaluation on this patient. I have r eviewed and agree with the care plan. History and Exam by me shows: Patient is still confused although she is slightly more agitated than yesterday. Discussed with son and grandson, at length. We do not know why she is hypercalcemic. We are awaiting her 24-hour urine. Also, we are looking into a parathyroid hormonelike peptide as a cancer screen. This is a send out lab and should be returned to her family physician. She will also need to have follow- up calcium levels drawn at home or by family physician. We will discharge if her 24-hour urine is obtained. She will follow-up within 5-7 days with her family physician and I warned her son that until she is stabilized in an environment, she may be agitated, at home. Discussed care with other providers and/or nursing. Patient has no complaint of chest discomfort, dyspnea, orthopnea, palpitations, nausea or vomiting, constipation or diarrhea, other changes in bowel habits, difficulty with urination, rash or itching, or other new complaints, except as mentioned above. Review of systems is otherwise negative. Examination: (Except as mentioned above): General: In no apparent distress. Alert and oriented 1. Nondiaphoretic. Head: Atraumatic and normocephalic. Respiratory: No use of accessory muscles. Lungs are clear throughout. Normal airflow. Cardiovascular: Regular rate and rhythm without murmur appreciated. Abdomen: Bowel sounds are normal. No hepatosplenomegaly mass or tenderness appreciated. Obese and therefore difficult to palpate deeply. Extremities: No cyanosis clubbing or edema. Skin: Warm and non-diaphoretic with no new lesions noted. Please see above regarding follow-up and monitoring of her calcium. Original Note: Date of Encounter: 04/20/18 Time of Encounter: 10:55 - Assessment and plan (1) Hypercalcemia Current Visit: Yes Status: Acute Assessment and plan: Calcium 11.0 today. Improving slightly. Urine calcium in urine creatinine is currently being obtained. parathormone peptide lab ordered. (2) Confusion Current Visit: Yes Status: Acute Assessment and plan: Assist with ADLs as necessary. Continue to monitor. (3) Hypokalemia Current Visit: Yes Status: Acute Assessment and plan: Continue supplements. Will follow labs. Currently 3.0. - Time Spent With Patient less than 15 minutes - Subjective Interval history: Patient resting in bed, trying to eat breakfast, requires assistance. Denies any discomfort but is extremely confused at this time. Patient alert and oriented to self but states she is unsure where she is. She is pleasant and cooperative. family has been present. - Constitutional Vitals: Temp Pulse Resp BP Pulse Ox 98.7 F 76 14 157/88 93 04/20/18 09:56 04/20/18 09:56 04/20/18 09:56 04/20/18 09:56 04/20/18 09:56 General appearance: Present: cooperative, A&O X 1, pleasant, no acute distress - Head Head exam: Present: atraumatic, normocephalic - Eye Eye exam: Present: PERRL, conjuntiva pink, sclera anicteric Pupils: Present: PERRL - Neck Neck exam general surgery: Present: supple, trachea midline. Absent: lymphadenopathy - Respiratory Respiratory exam: Present: CTAB. Absent: accessory muscle use, rales, rhonchi, wheezes - Cardiovascular Cardiovascular exam: Present: RRR, +S1, +S2. Absent: diastolic murmur, gallop, rubs, systolic murmur - GI/Abdominal GI/Abdominal exam: Present: normal bowel sounds, soft, no peritoneal signs. Absent: distended, tenderness - Extremities Exam Extremities exam: Present: warm, radial pulses palpable and symmetrical. Absent: calf tenderness, cyanotic, pedal edema - Neurological Exam Neurological exam: Present: CN II-XII intact, oriented X3, no focal deficits. Absent: pronater drift, facial droop, speech deficit - Skin Skin exam: Present: dry, intact Internal Medicine: Result - Labs CBC & Chem 7: 04/17/18 12:20 04/20/18 07:44 Labs: BMP 04/20/18 07:44 Sodium 142 Potassium 3.0 L Chloride 108 H Carbon Dioxide 30 H BUN 20 Creatinine 1.06 Glucose 102 Calcium 11.0 H - ABG Interpretation ABG results: PT/INR, D-dimer PT 11.9 Seconds (9.4-12.1) 04/17/18 12:20 Consult Discharge Plan - Plan Referrals: NONE,PCP [Primary Care Provider] -
--- NOTE | 2018-04-20 13:33 | Discharge Summary ---
Orders not resulted at time of discharge: Pending orders 04/18/18 12:10 Protein Electrophoresis Routine 04/20/18 10:45 Parathormone Related Peptide Routine 04/21/18 04:00 BMP [Basic Metabolic Panel] AM 0400 Ionized Calcium,venous blood AM 0400 04/22/18 04:00 BMP [Basic Metabolic Panel] AM 0400 Ionized Calcium,venous blood AM 0400 04/23/18 04:00 Ionized Calcium,venous blood AM 0400 Date of Encounter: 04/20/18 Time of Encounter: 13:31 - Discharge Diagnosis (1) Hypercalcemia Priority: Primary Status: Acute Comments: Calcium is improved to 11.0. Thyroid hormone related peptide ordered. This is a test that required to be sent out. Results will go to primary care provider. Discussed with family to avoid any vitamin D and calcium supplements. (2) Confusion Priority: Primary Status: Acute Comments: Assist with ADLs as necessary. 24-hour supervision at home. (3) Hypokalemia Priority: Secondary Status: Acute Comments: continue PO supplements. Follow up with PCP. Hospital course: Ms. Hernandez is a 87 year old female discharging to home with family for 24 hour supervision. Patient continues to be confused. Calcium level was elevated upon arrival to emergency room prior to admission. Calcium level is currently at 11.0. Discussed with family no calcium, vitamin D supplements. Standard wheelchair ordered due to patient requiring the assistance of this to successfully complete ADLs including toileting, feeding, bathing, dressing and grooming. Standard wheelchair is necessary due to the patient's impaired ambulation and mobility restrictions and would be unable to resolve these daily living tasks using a cane or walker. The patient is capable of using a standard wheelchair safely in their home and can maneuver within their home with adequate access. The caregiver will also be able to provide assistance. Also the hospital bed has been ordered in order to make frequent and immediate changes body positions that are not feasible with an ordinary bed. Discharge discussed with: patient, family, nurse, social work - Time Spent with Patient Total time spent providing and/or coordinating discharge services: Greater than 30 minutes - Discharge Medications Home Medications: Potassium Chloride 20 meq PO DAILY 3 Days [email or web address] 04/20/18 [Rx] Allergies/Adverse Reactions: Allergy/AdvReac Type Severity Reaction Status Date / Time No Known Allergies Allergy Verified 04/17/18 11:42 Date of admission: 12/09/18 14:36 Primary care physician: PCP NONE Consults: 04/17/18 15:52 Consult to Nutrition [CONS] Routine Comment: Consulting Provider: NUTRITION Reason for Dietary Consult: Diet Education Discharging clinician: Harish Starr Anticipated date of discharge: 04/20/18 - Constitutional Vitals: See progress note for exam dated on the date, Temp Pulse Resp BP Pulse Ox 98.7 F 76 14 157/88 93 04/20/18 09:56 04/20/18 09:56 04/20/18 09:56 04/20/18 09:56 04/20/18 09:56 General appearance: Present: cooperative, A&O X 1, pleasant, no acute distress - Patient Status Disposition: Home, Self-Care Condition: Good Functional capacity at discharge: wheelchair bound Overall status at discharge: patient is not back to baseline - Discharge Instructions Follow Up With: NONE,PCP [Primary Care Provider] - - Diet and Activity Activity: increase activity as tolerated Diet: advance to your usual diet
[2018-04-20 16:46] VITALS: BP 155/77
[2018-04-21 08:50] LABS: Alpha 2 Globulin (PEP) 0.82 g/dL (0.48-1.05); Beta Globulin (PEP) 0.79 g/dL (0.48-1.10)
[2018-04-21 10:36] LABS: IFE Reflexed NOT DONE
== END 2018-04-20 17:20 | disposition home or self-care (01) ==
LOC: INPGRE 11:36 → EMEROOGRE 11:36 → INPGRE 14:22
PROVIDERS: ADMIT Internal Medicine; ATTEND Internal Medicine

== ENCOUNTER 2018-05-24 14:43 | Inpatient (IN) ==
[2018-05-25] MEDS ORDERED: Mag Hydrox/Al Hydrox/Simeth 30 ML UDC PO PRN (18:58)
[2018-05-25] MEDS ORDERED: Acetaminophen 325 MG TABLET PO PRN (19:12)
[2018-05-25] MEDS ORDERED: Acetaminophen 325 MG TABLET PO SCH (20:00)
[2018-05-25] MEDS ORDERED: Melatonin 3 MG TABLET PO STA (23:07)
[2018-05-26] MEDS: *HR* Heparin 5,000 UNIT/ML VIAL SQ SCH ×2 (05:15→18:36)
[2018-05-26 05:31] LABS: Basophils % 0.6 %; Eosinophils # 0.2 K/mcL (0.0-0.6); Eosinophils % 4.9 %; Hematocrit 29.5 % (35.3-44.9); Hemoglobin 10.1 g/dL (11.5-15.4); Immature Granulocytes % 0.6 % (0-4); Lymphocytes # 1.4 K/mcL (0.6-4.6); Lymphocytes % 28.7 %; Mean Corpuscular HGB Conc 34.2 g/dL (31.6-35.5); Mean Corpuscular Hemoglobin 31.2 pg (28.0-33.3); Mean Platelet Volume 10.4 fL (9.4-12.4); Monocytes # 0.5 K/mcL (0.0-1.3); Monocytes % 10.2 %; Neutrophils # 2.7 K/mcL (1.6-8.9); Platelet Count 162 K/mcL (140-400); Red Blood Count 3.24 M/mcL (3.82-4.97); Red Cell Distribution Width 13.5 % (11.5-14.5)
[2018-05-26 05:49] LABS: Alanine Aminotransferase 20 Units/L (7-52); Albumin 3.2 g/dL (3.5-5.7); Albumin/Globulin Ratio 1.2 (1.1-2.2); Alkaline Phosphatase 61 Units/L (34-104); Aspartate Amino Transferase 32 Units/L (13-39); BUN/Creatinine Ratio 12 (6-26); Bilirubin,Total 1.2 mg/dL (0.3-1.0); Blood Urea Nitrogen 9 mg/dL (8-23); Calcium 10.6 mg/dL (8.6-10.3); Carbon Dioxide 30 mEq/L (23-29); Chloride 104 mEq/L (98-107); Globulin 2.7 g/dL (2.4-3.5); Glucose 106 mg/dL (70-105); Magnesium 1.5 mg/dL (1.6-2.6); Osmolality,Calculated 287 (280-300); Potassium 3.7 mEq/L (3.5-5.1); Sodium 139 mEq/L (136-145); Total Protein 5.9 g/dL (6.4-8.9); eGFR For Non-African Americans > 60 (> 60)
[2018-05-26] MEDS: Aspirin Enteric Coated 81 MG Tablet PO SCH (08:53)
--- NOTE | 2018-05-26 11:33 | Internal Med History&Physical ---
Date of Encounter: 05/26/18 Time of Encounter: 11:30 Assessment and Plan (1) Physical deconditioning Current visit: Yes Status: Acute Patient admitted to this facility for rehabilitation due to physical deconditioning. Patient has a history of falls and unsteady gait. Physical therapy evaluation pending. Patient also with history of confusion and at times noncompliance. We will continue with her current plan of care and monitor progress. (2) Confusion Current visit: No Status: Chronic Patient was admitted to this facility for rehabilitation due to deconditioning. Patient remains confused, oriented to name only. Patient able to answer complex questions but inappropriately, with long drawn out answers. Patient with moments of noncompliance, refusing some medications from nursing. Patient has been pleasant and compliant with exam. Physical therapy exam is pending. We will continue with current plan of care. (3) Transient cerebral ischemia Current visit: No Status: Acute No acute issues. Patient shows no neurological deficits on exam. Patient remains confused but this is unchanged. Patient is known to us, being admitted here in April and experiencing similar confusion. We will continue with current medications and plan a care. Qualifiers: Transient cerebral ischemia type: unspecified Qualified Code(s): G45.9 - Transient cerebral ischemic attack, unspecified Internal Medicine - H&P: HPI Chief complaint: deconditioning Admitted From: Home Plans for Post Hospital Care: Transfer [facility]way Facility History of present illness: Ms. Hernandez is a 87 year old female, who was transferred to this facility from an area hospital for rehabilitation due to deconditioning. Patient was admitted at an area hospital to rule out a CVA due to increased altered mental status. After diagnostic workup patient was diagnosed with a TIA. Patient also has a history of dementia which has progressed fairly quickly over the past several months. Patient also had a neurological workup to rule out any metabolic reason for her increased dementia which per medical records showed no significant findings. On exam patient is oriented to name only. Patient shows paranoia, making statements that she does not belong here and feels that she has been hidden from her family. Nursing reports patient has refused some medications. Patient has been admitted to this facility in recent months, during which time she was c onfused. Patient is to be evaluated by physical therapy today. She did remain pleasant during interview and denied any current discomforts or shortness of breath. Patient was compliant with exam. Past Med Surg Social Fam HX - Past Medical History Medical history: dementia, other Additional medical history: UTI, TIA Psychiatric history: depression - Past Surgical History Surgical History: cholecystectomy Additional surgical history: Cataracts - Social History Smoking Status: Never smoker Smokeless Tobacco Status: No Alcohol use: none Drug use: none - Family History Daughter History Unknown: Yes Adopted: No Living Status: Still Living Hx Family Cardiac Disorders: No Hx Family Respiratory Disorders: No Hx Family Cancer: No Hx Family GI Disorders: No Hx Family Endocrine Disorder: No Hx Family Neuromuscular Disorders: No Hx Family Neurologic Disorders: No Hx Family HEENT Disorders: No Hx Family Autoimmune Disorders: No Internal Medicine - H&P: Meds Aspirin [Lo-Dose Aspirin EC] 81 mg PO DAILY 05/25/18 [History] Atorvastatin [Lipitor] 40 mg PO HS 05/25/18 [History] Polyethylene Glycol 3350 [MiraLAX] 17 gm PO DAILY 05/25/18 [History] Allergy/AdvReac Type Severity Reaction Status Date / Time No Known Allergies Allergy Verified 04/17/18 11:42 All Systems PM: A 10-system review of systems was performed and is negative for pertinent findings except as documented above in the HPI. - Constitutional Constitutional: as per HPI, no chills, no fever(s), no night sweats - EENT Eyes: as per HPI, no change in vision, no discharge, no pain, no photophobia Ears: no ear discharge, no ear pain, no tinnitus Nose, mouth and throat: no dysphagia, no nasal discharge, no neck pain, no sore throat - Cardiovascular Cardiovascular ROS IM: as per HPI, no chest pain, no diaphoresis, no dyspnea, no lightheadedness, no palpitations, no syncope - Respiratory Respiratory: as per HPI, no cough, no dyspnea, no wheezing, no excessive phlegm production - Gastrointestinal Gastrointestinal: as per HPI, no abdominal pain, no diarrhea, no hematemesis, no hematochezia, no melena, no nausea, no vomiting - Genitourinary Genitourinary: as per HPI, no change in urinary stream, no dysuria, no flank pain, no hematuria - Musculoskeletal Musculoskeletal ROS IM: as per HPI, no numbness, no tingling - Integumentary Integumentary IM: no rash, no unusual bruising - Neurological Neurological ROS: as per HPI, no confusion, no convulsions, no focal weakness, no numbness, no tingling, no tremor(s) - Psychiatric Psychiatric: as per HPI, anxiety, confusion - Hematologic/Lymphatic Hematologic/Lymphatic: no easy bruising - Constitutional Vitals: Temp Pulse Resp BP Pulse Ox 97.9 F 77 15 127/79 93 05/26/18 07:36 05/26/18 09:00 05/26/18 09:00 05/26/18 09:00 05/26/18 09:00 General appearance: Present: A&O X 1, pleasant Exam: Patient remains oriented to name only. Patient has shown anxiety and paranoia that she has been from her family and does not belong here. Patient states that she has been [place] and has become from her family. Patient has refused some medications, but has been pleasant and cooperative during exam - Head Head exam: Present: atraumatic, normocephalic - Eye Eye exam: Present: PERRL, conjuntiva pink, sclera anicteric Pupils: Present: PERRL - Neck Neck exam general surgery: Present: supple, trachea midline. Absent: lymphadenopathy - Respiratory Respiratory exam: Present: CTAB. Absent: accessory muscle use, rales, rhonchi, wheezes - Cardiovascular Cardiovascular exam: Present: RRR, +S1, +S2. Absent: diastolic murmur, gallop, rubs, systolic murmur - GI/Abdominal GI/Abdominal exam: Present: normal bowel sounds, soft, no peritoneal signs. Absent: distended, tenderness - Extremities Exam Extremities exam: Present: warm, radial pulses palpable and symmetrical. Absent: calf tenderness, cyanotic, pedal edema - Neurological Exam Neurological exam: Present: CN II-XII intact, no focal deficits. Absent: pronater drift, facial droop, speech deficit - Skin Skin exam: Present: dry, intact Internal Med - H&P Results - Labs CBC & Chem 7: 05/26/18 05:05 05/26/18 05:05 Labs: Short CBC 05/26/18 Range/Units 05:05 WBC 4.9 (4.3-11.1) K/mcL Hgb 10.1 L (11.5-15.4) g/dL Hct 29.5 L (35.3-44.9) % Plt Count 162 (140-400) K/mcL Neutrophils # 2.7 (1.6-8.9) K/mcL BMP 05/26/18 05:05 Sodium 139 Potassium 3.7 Chloride 104 Carbon Dioxide 30 H BUN 9 Creatinine 0.74 Glucose 106 H Calcium 10.6 H Liver Function 05/26/18 Range/Units 05:05 Total Bilirubin 1.2 H (0.3-1.0) mg/dL AST 32 (13-39) Units/L ALT 20 (7-52) Units/L Alkaline Phosphatase 61 (34-104) Units/L Albumin 3.2 L (3.5-5.7) g/dL
[2018-05-26] MEDS: Haloperidol Oral Conc 10 MG/5 ML UDC PO SCH (20:11)
[2018-05-27] MEDS: *HR* Heparin 5,000 UNIT/ML VIAL SQ SCH ×2 (05:04→17:42)
[2018-05-27] MEDS: Aspirin Enteric Coated 81 MG Tablet PO SCH (08:47)
--- NOTE | 2018-05-27 14:11 | Internal Med Progress Note ---
Addendum entered and electronically signed by Loretta Jensen 05/29/18 15:19: I have personally performed a face to face evaluation on this patient. I have reviewed and agree with the care plan. Original Note: Date of Encounter: 05/27/18 Time of Encounter: 14:09 - Assessment and plan (1) Physical deconditioning Current Visit: Yes Status: Acute Assessment and plan: No acute issues. Patient has been participating in physical therapy. We will continue with current plan of care. (2) Confusion Current Visit: Yes Status: Chronic Assessment and plan: Patient remains confused, oriented to name only. Will have psychology evaluate patient to evaluate her for dementia and to evaluate her competency. Patient currently has been cooperative with staff today and has participated in physical therapy. Nurse reports patient did sleep last evening after receiving her at bedtime dose of Haldol. We will continue with current plan of care. (3) Transient cerebral ischemia Current Visit: Yes Status: Acute Assessment and plan: No acute issues. Patient shows no neurological deficits on exam. We will continue with current medications and plan of care. Qualifiers: Transient cerebral ischemia type: unspecified Qualified Code(s): G45.9 - Transient cerebral ischemic attack, unspecified - Time Spent With Patient less than 15 minutes - Subjective Interval history: Patient appears relaxed and currently denies any discomforts or shortness of breath. Patient remains confused oriented to name only. Patient has inappropriate conversation going down multiple tangents of subjective. Patient has been compliant with care per nursing reports. Patient has been present dissipated and physical therapy. - Constitutional Vitals: Temp Pulse Resp BP Pulse Ox 98.2 F 79 16 111/65 92 05/27/18 07:00 05/27/18 07:00 05/27/18 07:00 05/27/18 07:00 05/27/18 07:00 General appearance: Present: A&O X 1, pleasant Exam: Patient continues to be oriented to name only. Patient remains confused with inappropriate conversation. Remains pleasant - Head Head exam: Present: atraumatic, normocephalic - Eye Eye exam: Present: PERRL, conjuntiva pink, sclera anicteric Pupils: Present: PERRL - Neck Neck exam general surgery: Present: supple, trachea midline. Absent: lymphadenopathy - Respiratory Respiratory exam: Present: CTAB. Absent: accessory muscle use, rales, rhonchi, wheezes - Cardiovascular Cardiovascular exam: Present: RRR, +S1, +S2. Absent: diastolic murmur, gallop, rubs, systolic murmur - GI/Abdominal GI/Abdominal exam: Present: normal bowel sounds, soft, no peritoneal signs. Absent: distended, tenderness - Extremities Exam Extremities exam: Present: warm, radial pulses palpable and symmetrical. Absent: calf tenderness, cyanotic, pedal edema - Neurological Exam Neurological exam: Present: CN II-XII intact, oriented X3, no focal deficits. Absent: pronater drift, facial droop, speech deficit - Skin Skin exam: Present: dry, intact Internal Medicine: Result - Labs CBC & Chem 7: 05/26/18 05:05 05/26/18 05:05 Consult Discharge Plan - Plan Referrals: NONE,PCP [Primary Care Provider] -
[2018-05-27] MEDS: Haloperidol Oral Conc 10 MG/5 ML UDC PO SCH (20:15)
[2018-05-28] MEDS: *HR* Heparin 5,000 UNIT/ML VIAL SQ SCH ×2 (06:09→18:17)
[2018-05-28] MEDS: Aspirin Enteric Coated 81 MG Tablet PO SCH (09:45)
[2018-05-28] MEDS: Haloperidol Oral Conc 10 MG/5 ML UDC PO SCH (19:35)
[2018-05-29] MEDS: *HR* Heparin 5,000 UNIT/ML VIAL SQ SCH ×2 (05:40→17:25)
[2018-05-29] MEDS: Aspirin Enteric Coated 81 MG Tablet PO SCH (10:23)
--- NOTE | 2018-05-29 15:31 | Internal Med Progress Note ---
Date of Encounter: 05/28/18 Time of Encounter: 13:10 - Subjective Interval history: - Assessment and plan (1) Physical deconditioning Current Visit: Yes Status: Acute Assessment and plan: No acute issues. Patient has been participating in physical therapy. Denies new pain , We will continue with current plan of care. (2) chronic Confusion symptoms of fairly advanced dementia Current Visit: Yes Status: Chronic Assessment and plan: Patient remains confused, oriented to name but not date or time. This appears to be gradual process over about 1 year. Pt family reported pt had been offered aricept in the past but family divided over her having dementia. Will have psychology evaluate patient . Consult placed. Need to evaluate her for dementia - also and to evaluate her competency. Pt had been living alone, had been forgetting to eat and do other ADL. Here her symptoms worsen in evenings and at times include severe agitation. She did respond well to haldol at those times (3) Transient cerebral ischemia Current Visit: Yes Status: Acute Assessment and plan: hx No current TIA. No acute issues no new weakness no head ache. Has had previous complete work ups. Patient shows no neurological deficits on exam. We will continue with current medications and plan of care. Qualifiers: Transient cerebral ischemia type: unspecified Qualified Code(s): G45.9 - Transient cerebral ischemic attack, unspecified - Time Spent With Patient less than 15 minutes - Subjective Interval history: Patient remains confused oriented to name only. Patient has inappropriate conversation and is unable to answer questions on current or recent happening. She does forget to eat She is getting feeding assist here. Patient has been compliant with care per nursing reports. - Constitutional General appearance: Present: A&O X 1, pleasant no distress frail WF Exam: Patient continues to be oriented to name only. Patient remains confused with inappropriate conversation. Does not attend to own ADL - Head Head exam: Present: atraumatic, normocephalic - Eye Eye exam: Present: PERRL, conjuntiva pink, sclera anicteric Pupils: Present: PERRL - Neck Neck exam general surgery: Present: supple, trachea midline. Absent: lymphad enopathy - Respiratory Respiratory exam: Present: CTAB. Absent: accessory muscle use, rales, rhonchi, wheezes - Cardiovascular Cardiovascular exam: Present: RRR, +S1, +S2. Absent: diastolic murmur, gallop, rubs, systolic murmur - GI/Abdominal GI/Abdominal exam: Present: normal bowel sounds, soft, no peritoneal signs. Absent: distended, tenderness - Extremities Exam Extremities exam: Present: warm, radial pulses palpable and symmetrical. Absent: calf tenderness, cyanotic, pedal edema - Neurological Exam Neurological exam: Present: CN II-XII intact, oriented X3, no focal deficits. Absent: pronater drift, facial droop, speech deficit - Skin Skin exam: Present: dry, intact - Constitutional Vitals: Temp Pulse Resp BP Pulse Ox 97.9 F 72 15 104/66 94 05/29/18 07:00 05/29/18 07:00 05/29/18 07:00 05/29/18 07:00 05/29/18 07:00 General appearance: Present: A&O X 1, pleasant Internal Medicine: Result - Labs CBC & Chem 7: 05/26/18 05:05 05/26/18 05:05 Consult Discharge Plan - Plan Referrals: NONE,PCP [Primary Care Provider] -
--- NOTE | 2018-05-29 15:32 | Internal Med Progress Note ---
Date of Encounter: 05/29/18 Time of Encounter: 15:00 - Subjective Interval history: - Assessment and plan (1) Physical deconditioning Current Visit: Yes Status: Acute Assessment and plan: No acute issues. Patient has been participating in physical therapy. Denies new pain , We will continue with current plan of care. (2) chronic Confusion symptoms of fairly advanced dementia Current Visit: Yes Status: Chronic Assessment and plan: Patient remains confused, oriented to name but not date or time. This appears to be gradual process over about 1 year. Pt family reported pt had been offered aricept in the past but family divided over her having dementia. Will have psychology evaluate patient . Consult placed. Need to evaluate her for dementia - also and to evaluate her competency. Pt had been living alone, had been forgetting to eat and do other ADL. Here her symptoms worsen in evenings and at times include severe agitation. She did respond well to haldol at those times (3) Transient cerebral ischemia Current Visit: Yes Status: Acute Assessment and plan: hx No current TIA. No acute issues no new weakness no head ache. Has had previous complete work ups. Patient shows no neurological deficits on exam. We will continue with current medications and plan of care. Qualifiers: Transient cerebral ischemia type: unspecified Qualified Code(s): G45.9 - Transient cerebral ischemic attack, unspecified - Time Spent With Patient less than 15 minutes - Subjective Interval history: Patient remains confused oriented to name only. Patient has inappropriate conversation and is unable to answer questions on current or recent happening. She does forget to eat She is getting feeding assist here. Pt family would like her to have megace for appetite will add megace po - Constitutional General appearance: Present: A&O X 1, pleasant no distress frail WF Exam: Patient continues to be oriented to name only. Patient remains confused with inappropriate conversation. Does not attend to own ADL - Head Head exam: Present: atraumatic, normocephalic - Eye Eye exam: Present: PERRL, conjuntiva pink, sclera anicteric Pupils: Present: PERRL - Neck Neck exam general surgery: Present: supple, trachea midline. Absent: lymphadenopathy - Respiratory Respiratory exam: Present: CTAB. Absent: accessory muscle use, rales, rhonchi, wheezes - Cardiovascular Cardiovascular exam: Present: RRR, +S1, +S2. Absent: diastolic murmur, gallop, rubs, systolic murmur - GI/Abdominal GI/Abdominal exam: Present: normal bowel sounds, soft, no peritoneal signs. Absent: distended, tenderness - Extremities Exam Extremities exam: Present: warm, radial pulses palpable and symmetrical. Absent: calf tenderness, cyanotic, pedal edema - Neurological Exam Neurological exam: Present: CN II-XII intact, oriented X3, no focal deficits. A bsent: pronater drift, facial droop, speech deficit - Skin Skin exam: Present: dry, intact - Constitutional Vitals: Temp Pulse Resp BP Pulse Ox 97.9 F 72 15 104/66 94 05/29/18 07:00 05/29/18 07:00 05/29/18 07:00 05/29/18 07:00 05/29/18 07:00 General appearance: Present: A&O X 1, pleasant Internal Medicine: Result - Labs CBC & Chem 7: 05/26/18 05:05 05/26/18 05:05 Consult Discharge Plan - Plan Referrals: NONE,PCP [Primary Care Provider] -
[2018-05-29] MEDS: Haloperidol Oral Conc 10 MG/5 ML UDC PO SCH (19:55)
[2018-05-30] MEDS: *HR* Heparin 5,000 UNIT/ML VIAL SQ SCH ×2 (05:07→17:44)
[2018-05-30 07:55] LABS: Basophils % 0.8 %; Eosinophils # 0.3 K/mcL (0.0-0.6); Hematocrit 29.2 % (35.3-44.9); Immature Granulocytes % 0.6 % (0-4); Lymphocytes # 1.2 K/mcL (0.6-4.6); Lymphocytes % 24.1 %; Mean Corpuscular HGB Conc 34.2 g/dL (31.6-35.5); Mean Corpuscular Hemoglobin 31.4 pg (28.0-33.3); Mean Corpuscular Volume 91.8 fL (83.0-100.0); Monocytes # 0.6 K/mcL (0.0-1.3); Monocytes % 10.9 %; Platelet Count 171 K/mcL (140-400); Red Blood Count 3.18 M/mcL (3.82-4.97); Red Cell Distribution Width 14.4 % (11.5-14.5); Segmented Neutrophils % 58.6 %
[2018-05-30 08:09] LABS: Alanine Aminotransferase 24 Units/L (7-52); Albumin 3.1 g/dL (3.5-5.7); Albumin/Globulin Ratio 1.1 (1.1-2.2); Alkaline Phosphatase 63 Units/L (34-104); Aspartate Amino Transferase 29 Units/L (13-39); BUN/Creatinine Ratio 12 (6-26); Bilirubin,Total 1.1 mg/dL (0.3-1.0); Blood Urea Nitrogen 10 mg/dL (8-23); Calcium 11.2 mg/dL (8.6-10.3); Carbon Dioxide 31 mEq/L (23-29); Chloride 105 mEq/L (98-107); Globulin 2.7 g/dL (2.4-3.5); Glucose 110 mg/dL (70-105); Magnesium 1.7 mg/dL (1.6-2.6); Osmolality,Calculated 290 (280-300); Potassium 3.5 mEq/L (3.5-5.1); Sodium 140 mEq/L (136-145); Total Protein 5.8 g/dL (6.4-8.9); eGFR For Non-African Americans > 60 (> 60)
[2018-05-30] MEDS: Aspirin Enteric Coated 81 MG Tablet PO SCH (08:28)
--- NOTE | 2018-05-30 15:50 | Internal Med Progress Note ---
Addendum entered and electronically signed by Harish Starr MD 05/30/18 16:02: I have personally performed a face to face evaluation on this patient. I have r eviewed and agree with the care plan. History and Exam by me shows: Patient has not been able to participate in therapy and because of her memory and/or dementia, therapy feels that she is not an appropriate person for this unit. Family is concerned about her calcium and vitamin D. We will recheck this. Apparently, family was also informed that she needs to have an event monitor and we advised this be obtained through her director housekeeping as we cannot do it here. Discussed care with other providers and/or nursing. Patient has no complaint of chest discomfort, dyspnea, orthopnea, palpitations, nausea or vomiting, constipation or diarrhea, other changes in bowel habits, difficulty with urination, rash or itching, or other new complaints, except as mentioned above. Review of systems is otherwise negative. Examination: (Except as mentioned above): General: In no apparent distress. Alert and oriented to self, only. She remains pleasantly confused, as before. Nondiaphoretic. Head: Atraumatic and normocephalic. Respiratory: No use of accessory muscles. Lungs are clear throughout. Normal airflow. Cardiovascular: Regular rate and rhythm without murmur appreciated. Abdomen: Bowel sounds are normal. No hepatosplenomegaly mass or tenderness appreciated. Obese and therefore difficult to palpate deeply. Extremities: No cyanosis clubbing or edema. Patient is examined upright in chair and this also limits exam. Skin: Warm and non-diaphoretic with no new lesions noted. Original Note: Date of Encounter: 05/30/18 Time of Encounter: 15:48 - Assessment and plan (1) Physical deconditioning Current Visit: Yes Status: Acute Assessment and plan: No acute issues. Patient has been participating in physical therapy. We will continue with current plan of care. (2) Confusion Current Visit: Yes Status: Chronic Assessment and plan: Patient remains confused, oriented to name only. Family states that they believe patient may have an increase in confusion from her usual baseline confusion. We will review patient's current medications and recheck her labs to include her calcium and vitamin D levels. Patient's calcium and vitamin D levels have been elevated in the past. Will have psychology evaluate patient to evaluate her for dementia and to evaluate her competency. Patient currently has been cooperative with staff today and has participated in physical therapy. Nurse reports patient did sleep last evening after receiving her at bedtime dose of Haldol. We will continue with current plan of care. (3) Transient cerebral ischemia Current Visit: Yes Status: Inactive Assessment and plan: No acute issues. Patient shows no neurological deficits on exam. We will continue with current medications and plan of care. Qualifiers: Transient cerebral ischemia type: unspecified Qualified Code(s): G45.9 - Transient cerebral ischemic attack, unspecified - Time Spent With Patient less than 15 minutes - Subjective Interval history: Patient appears relaxed and currently denies any discomforts or shortness of breath. Patient remains confused oriented to name only. Patient has inappropriate conversation going down multiple tangents of subjective. Family has stated that they believe patient may be more confused than her baseline. Patient has been compliant with care per nursing reports. Patient has been compliant with physical therapy. - Constitutional Vitals: Temp Pulse Resp BP Pulse Ox 97.8 F 75 15 127/77 93 05/30/18 06:40 05/30/18 06:40 05/30/18 06:40 05/30/18 06:40 05/30/18 06:40 General appearance: Present: A&O X 1, pleasant Exam: Patient oriented to name only. Conversation mostly is inappropriate with multiple tangents subjective that is covered when trying to answer simple questions. - Head Head exam: Present: atraumatic, normocephalic - Eye Eye exam: Present: PERRL, conjuntiva pink, sclera anicteric Pupils: Present: PERRL - Neck Neck exam general surgery: Present: supple, trachea midline. Absent: lymphadenopathy - Respiratory Respiratory exam: Present: CTAB. Absent: accessory muscle use, rales, rhonchi, wheezes - Cardiovascular Cardiovascular exam: Present: RRR, +S1, +S2. Absent: diastolic murmur, gallop, rubs, systolic murmur - GI/Abdominal GI/Abdominal exam: Present: normal bowel sounds, soft, no peritoneal signs. Absent: distended, tenderness - Extremities Exam Extremities exam: Present: warm, radial pulses palpable and symmetrical. Absent: calf tenderness, cyanotic, pedal edema - Neurological Exam Neurological exam: Present: CN II-XII intact, oriented X3, no focal deficits. Absent: pronater drift, facial droop, speech deficit - Skin Skin exam: Present: dry, intact Internal Medicine: Result - Labs CBC & Chem 7: 05/30/18 07:37 05/30/18 07:37 Labs: Short CBC 05/30/18 Range/Units 07:37 WBC 5.2 (4.3-11.1) K/mcL Hgb 10.0 L (11.5-15.4) g/dL Hct 29.2 L (35.3-44.9) % Plt Count 171 (140-400) K/mcL Neutrophils # 3.0 (1.6-8.9) K/mcL BMP 05/30/18 07:37 Sodium 140 Potassium 3.5 Chloride 105 Carbon Dioxide 31 H BUN 10 Creatinine 0.84 Glucose 110 H Calcium 11.2 H Liver Function 05/30/18 Range/Units 07:37 Total Bilirubin 1.1 H (0.3-1.0) mg/dL AST 29 (13-39) Units/L ALT 24 (7-52) Units/L Alkaline Phosphatase 63 (34-104) Units/L Albumin 3.1 L (3.5-5.7) g/dL Consult Discharge Plan - Plan Referrals: NONE,PCP [Primary Care Provider] -
[2018-05-30 15:55] LABS: ABG Ionized Calcium 1.55 mmol/L (1.15-1.35)
[2018-05-30] MEDS: Haloperidol Oral Conc 10 MG/5 ML UDC PO SCH (20:26)
[2018-05-31] MEDS: *HR* Heparin 5,000 UNIT/ML VIAL SQ SCH ×2 (05:10→17:47)
[2018-05-31] MEDS: Aspirin Enteric Coated 81 MG Tablet PO SCH (09:25)
--- NOTE | 2018-05-31 10:52 | Internal Med Progress Note ---
Addendum entered and electronically signed by Harish Starr MD 05/31/18 13:19: I have personally performed a face to face evaluation on this patient. I have r eviewed and agree with the care plan. History and Exam by me shows: I spoke at length with son who was concerned about calcium and vitamin D. To summarize: The patient had a scan of her neck that showed that she had no parathyroid tumor, about a week ago. At [facility] her vitamin D level was 166 is now down to 145. I told him about the elevated ionized calcium and the fact that she be checked when the vitamin D level is down. We discussed possible other causes including cancer, etc. I mentioned that her delirium and/or dementia may be worsened by calcium and that this needs to be evaluated, long-term. Discussed care with other providers and/or nursing. Patient has no complaint of chest discomfort, dyspnea, orthopnea, palpitations, nausea or vomiting, constipation or diarrhea, other changes in bowel habits, difficulty with urination, rash or itching, or other new complaints, except as mentioned above. Review of systems is otherwise negative. Examination: (Except as mentioned above): General: In no apparent distress. Alert and oriented 1, only, as before.. Nondiaphoretic. Head: Atraumatic and normocephalic. Respiratory: No use of accessory muscles. Lungs are clear throughout. Normal airflow. Cardiovascular: Regular rate and rhythm without murmur appreciated. Abdomen: Bowel sounds are normal. No hepatosplenomegaly mass or tenderness appreciated. Extremities: No cyanosis clubbing or edema. Skin: Warm and non-diaphoretic with no new lesions noted. Original Note: Date of Encounter: 05/31/18 Time of Encounter: 10:49 - Assessment and plan (1) Transient cerebral ischemia Current Visit: Yes Status: Acute Assessment and plan: No new neurological deficits. Continue to monitor. Continue PT and OT. Will follow progress. Qualifiers: Transient cerebral ischemia type: unspecified Qualified Code(s): G45.9 - Transient cerebral ischemic attack, unspecified (2) Confusion Current Visit: Yes Status: Chronic Assessment and plan: Confusion is due to dementia. Assist with ADLs as necessary. (3) Physical deconditioning Current Visit: Yes Status: Acute Assessment and plan: Continue PT and OT. Will follow progress. - Time Spent With Patient less than 15 minutes - Subjective Interval history: Patient sitting comfortably in wheelchair. Participating with therapy. Confused. Alert and oriented to person only. Pleasant and cooperative. - Constitutional Vitals: Temp Pulse Resp BP Pulse Ox 98.5 F 84 16 122/72 93 05/31/18 07:54 05/31/18 07:54 05/31/18 07:54 05/31/18 07:54 05/31/18 07:54 General appearance: Present: cooperative, A&O X 1, pleasant, no acute distress - Head Head exam: Present: atraumatic, normocephalic - Eye Eye exam: Present: PERRL, conjuntiva pink, sclera anicteric Pupils: Present: PERRL - Neck Neck exam general surgery: Present: supple, trachea midline. Absent: lymphadenopathy - Respiratory Respiratory exam: Present: CTAB. Absent: accessory muscle use, rales, rhonchi, wheezes - Cardiovascular Cardiovascular exam: Present: RRR, +S1, +S2. Absent: diastolic murmur, gallop, rubs, systolic murmur - GI/Abdominal GI/Abdominal exam: Present: normal bowel sounds, soft, no peritoneal signs. Absent: distended, tenderness - Extremities Exam Extremities exam: Present: warm, radial pulses palpable and symmetrical. Absent: calf tenderness, cyanotic, pedal edema - Neurological Exam Neurological exam: Present: CN II-XII intact, oriented X3, no focal deficits. Absent: pronater drift, facial droop, speech deficit - Skin Skin exam: Present: dry, intact Internal Medicine: Result - Labs CBC & Chem 7: 05/30/18 07:37 05/30/18 07:37 Consult Discharge Plan - Plan Referrals: NONE,PCP [Primary Care Provider] -
[2018-05-31] MEDS: Haloperidol Oral Conc 10 MG/5 ML UDC PO SCH (20:22)
[2018-06-01] MEDS: *HR* Heparin 5,000 UNIT/ML VIAL SQ SCH (05:49)
[2018-06-01 06:52] VITALS: BP 105/65
[2018-06-01] MEDS: Aspirin Enteric Coated 81 MG Tablet PO SCH (09:38)
--- NOTE | 2018-06-01 12:35 | Discharge Summary ---
Addendum entered and electronically signed by Harish Starr MD 06/02/18 11:46: I have personally performed a face to face evaluation on this patient. I have r eviewed and agree with the care plan. History and Exam by me shows: The patient was evaluated by me yesterday but the note was not complete. This documentation is being completed today for that reason. Patient states she is not feeling well. 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 I expressed to her daughter, as to her son yesterday, that she needs to have her calcium followed in a month or so as well as a vitamin D level. It may take 1-3 months before the vitamin D level returns to normal and I explained this. If her calcium is still elevated after her vitamin D level has returned to normal, she will need another survey for primary or secondary hyperparathyroidism, etc. Discussed care with other providers and/or nursing. Patient has no complaint of chest discomfort, dyspnea, orthopnea, palpitations, nausea or vomiting, constipation or diarrhea, other changes in bowel habits, difficulty with urination, rash or itching, or other new complaints, except as mentioned above. Review of systems is otherwise negative. Examination: (Except as mentioned above): General: In no apparent distress. Alert and oriented 3. Nondiaphoretic. Head: Atraumatic and normocephalic. Respiratory: No use of accessory muscles. Lungs are clear throughout. Normal airflow. Cardiovascular: Regular rate and rhythm without murmur appreciated. Abdomen: Bowel sounds are normal. No hepatosplenomegaly mass or tenderness appreciated. Obese and therefore difficult to palpate deeply. Patient is examined upright in chair and this also limits exam. Extremities: No cyanosis clubbing or edema. Skin: Warm and non-diaphoretic with no new lesions noted. Original Note: Orders not resulted at time of discharge: Pending orders 06/06/18 04:00 Complete Blood Count [HEME] MO Comprehensive Metabolic Panel MO Magnesium MO 06/13/18 04:00 Complete Blood Count [HEME] MO Comprehensive Metabolic Panel MO Magnesium MO Date of Encounter: 06/01/18 Time of Encounter: 12:31 - Discharge Diagnosis (1) Transient cerebral ischemia Priority: Primary Status: Acute Comments: assist with care, 24 hr supervision. dementia. f/u with PCP. Qualifiers: Transient cerebral ischemia type: unspecified Qualified Code(s): G45.9 - Transient cerebral ischemic attack, unspecified (2) Confusion Priority: Secondary Status: Chronic Comments: 24 hr supervision. discharging to home with family. (3) Physical deconditioning Priority: Primary Status: Acute Comments: improved. ambulates with SBA. Hospital course: Ms. Hernandez is a 87 year old female discharging to home with daughter. Instructed to follow up with PCP within one week. Will require 24-hour supervision. Denies any complaints at this time. Discharge discussed with: patient, family, nurse, social work - Time Spent with Patient Total time spent providing and/or coordinating discharge services: Less than 30 minutes - Discharge Medications Home Medications: Aspirin [Lo-Dose Aspirin EC] 81 mg PO DAILY 05/25/18 [History] Atorvastatin [Lipitor] 40 mg PO HS 05/25/18 [History] Polyethylene Glycol 3350 [MiraLAX] 17 gm PO DAILY 05/25/18 [History] Potassium Chloride 20 meq PO DAILY tab.er.prt 06/01/18 [Rx] Allergies/Adverse Reactions: Allergy/AdvReac Type Severity Reaction Status Date / Time No Known Allergies Allergy Verified 04/17/18 11:42 Date of admission: 05/25/18 17:19 Primary care physician: PCP NONE Consults: 05/25/18 17:32 Consult to Occupational Therapy [CONS] Routine Comment: Evaluate, develop and implement POC Reason for Consult: Eval post TIA Does patient have active BEDREST order?: No Is patient medically & hemodynamically stable?: Yes Patient assessed for mobility or mobilized this visit?: No Consult to Physical Therapy [CONS] Routine Comment: Evaluate, develop and implement POC Reason for Consult: Eval from TIA Does patient have active BEDREST order?: No Is patient medically & hemodynamically stable?: Yes Patient assessed for mobility or mobilized this visit?: No Consult to Recreational Therapy [CONS] Routine Comment: Evaluate, develop and implement POC Consult to Advertising Assistant Manager [CONS] Routine Reason for SW Consult: Eval from TIA Consult to Speech Therapy [CONS] Routine Comment: Evaluate, develop and implement POC Reason for Consult: speech impairment Call Completed: Yes 05/25/18 18:25 Consult to Nutrition [CONS] Routine Comment: Consulting Provider: NUTRITION Reason for Dietary Consult: PO Supplementation 05/26/18 13:47 Consult to Psychology [CONS] Routine Consulting Provider: Loretta Jensen Reason for Consult: evaluate for dementia and for competency Time Notified: 13:48 Call Completed: No Discharging clinician: Harish Starr Anticipated date of discharge: 06/01/18 - Constitutional Vitals: Temp Pulse Resp BP Pulse Ox 98.3 F 75 16 105/65 93 06/01/18 06:51 06/01/18 06:51 06/01/18 06:51 06/01/18 06:51 06/01/18 06:51 General appearance: Present: cooperative, A&O X 1, pleasant, no acute distress - Head Head exam: Present: atraumatic, normocephalic - Eye Eye exam: Present: PERRL, conjuntiva pink, sclera anicteric Pupils: Present: PERRL - Neck Neck exam general surgery: Present: supple, trachea midline. Absent: lymphadenopathy - Respiratory Respiratory exam: Present: CTAB. Absent: accessory muscle use, rales, rhonchi, wheezes - Cardiovascular Cardiovascular exam: Present: RRR, +S1, +S2. Absent: diastolic murmur, gallop, rubs, systolic murmur - GI/Abdominal GI/Abdominal exam: Present: normal bowel sounds, soft, no peritoneal signs. Absent: distended, tenderness - Extremities Exam Extremities exam: Present: warm, radial pulses palpable and symmetrical. Absent: calf tenderness, cyanotic, pedal edema - Neurological Exam Neurological exam: Present: CN II-XII intact, oriented X3, no focal deficits. Absent: pronater drift, facial droop, speech deficit - Skin Skin exam: Present: dry, intact - Patient Status Disposition: Home, Self-Care Condition: Fair Functional capacity at discharge: uses cane/walker Overall status at discharge: patient is progressing back to baseline - Discharge Instructions Follow Up With: NONE,PCP [Primary Care Provider] - - Diet and Activity Activity: increase activity as tolerated Diet: advance to your usual diet
--- NOTE | 2018-06-02 12:02 | Physician Discharge Referral ---
Addendum entered and electronically signed by Harish Starr MD 06/02/18 14:44: Original Note: Home Health/Hosp Referral Info Transfer to: Home Health Provider in Charge Post Discharge: PCP - Diagnosis (1) Physical deconditioning Priority: Primary Status: Acute (2) Confusion Priority: Secondary Status: Chronic (3) Transient cerebral ischemia Priority: Secondary Status: Acute - Respiratory Orders Smoking Cessation: Smoking cessation has been advised. For more information, call the [place] Tobacco Quit Line at 3-996-RDBU-NOW. - Diet/Nutrition Diet/Nutrition Orders: Mechanical Soft, No Added Salt (CHICA), No Concentrated Sweets - Activity Activity Orders: Up ad jen, Walker - Services Needed Following services are medically necessary services: Nursing, Physical Therapy - Transfer Medications Home Medications: Aspirin [Lo-Dose Aspirin EC] 81 mg PO DAILY 05/25/18 [History] Atorvastatin [Lipitor] 40 mg PO HS 05/25/18 [History] Polyethylene Glycol 3350 [MiraLAX] 17 gm PO DAILY 05/25/18 [History] Potassium Chloride 20 meq PO DAILY tab.er.prt 06/01/18 [Rx] Allergies/Adverse Reactions: Allergy/AdvReac Type Severity Reaction Status Date / Time No Known Allergies Allergy Verified 04/17/18 11:42 Certification: Further, I certify that my clinical findings support that this patient is homebound (i.e. absences from home require considerable and taxing effort and are for medical reasons or orthodoxy services or infrequently or short duration when for other reasons) because: Homebound Reason: Leaving home requires considerable and taxing effort due to condition Attestation: My signature below is to certify that this patient is under my care and that I, or nurse practitioner, or a physician's executive assistant to president working with me, has a face- to-face encounter with this patient.
== END 2018-06-01 15:01 | disposition home or self-care (01) | DRG 69 ==
LOC: INPGRE 05-25 17:19